=== PATIENT | male | born 1970 | race Caucasian/White ===

== ENCOUNTER 2021-10-31 10:43 | Emergency (ER) | payer SELFPAY ==
[2021-10-31 10:50] VITALS: BP 123/82; PULSE 96; RESP 19; TEMP 36.8; O2SAT 97; BMI 27.4
--- NOTE | 2021-10-31 11:20 | ED_ITS ---
HPI - Nausea/Vomiting/Diarrhea General: Chief complaint: General Medical Stated complaint: Flu-like symptoms Time Seen by Provider: 10/31/21 10:57 Source: patient Mode of arrival: ambulatory Limitations: no limitations History of Present Illness: Patient is a 51-year-old male who presents to ED today with a complaint of body aches and several episodes of vomiting and watery diarrhea (states 15ish of each) that began around 2am this morning. No documented fevers but states he has severe chills. No sick contacts. He is vaccinated for COVID. Did not receive influenza vaccination. He is not complaining of abdominal pain. No poor food exposures. No recent illness or antibiotic use. No blood in emesis or stool. MD elicited complaint: nausea, vomiting and diarrhea Onset (ago): hour(s) Description of diarrhea: watery Associated nausea: Yes Associated abdominal pain: No Associated symtoms: Reports nausea; Denies change in vision, chest pain, dizziness, dysuria, fatigue, headache(s) or malaise Review of Systems Const: Reports: chills and body aches; Denies: fatigue or malaise Eyes: Denies: change in vision ENMT: Denies: throat pain, odynophagia, nasal discharge or nasal congestion Card: Denies: chest pain Resp: Denies: dyspnea GI: Reports: nausea, vomiting and diarrhea; Denies: abdominal pain, hematemesis, hematochezia or melena : Denies: flank pain, dysuria or hematuria Musc: Reports: joint pain (reports body aches); Denies: neck pain, back pain or extremity pain Skin/Breast: Denies: rash Neuro: Denies: headache(s), numbness in extremities, weakness in extremities, sensory changes, difficulty walking or dizziness [facility] ED PFSH: Social History Smoking and tobacco status: current every day smoker Physical Exam Const: COMMON NORMALS: no acute distress, average body habitus, patient oriented x3, no limitations, healthy appearing, alert and well nourished GENERAL APPEARANCE: cooperative ORIENTATION/CONSCIOUSNESS: Yes awake, Yes oriented to person, Yes oriented to place and Yes oriented to time HENMT: COMMON NORMALS: normocephalic and atraumatic HEAD & SCALP: normocephalic and atraumatic Resp: COMMON NORMALS: normal respiratory effort and clear to auscultation bilaterally AUSCULTATION: clear to auscultation bilaterally Cardio: COMMON NORMALS: regular rate and regular rhythm RATE: regular rate RHYTHM: regular rhythm GI: COMMON NORMALS: Normal to inspection, nondistended, normoactive bowel sounds present, Soft to palpation, non-tender, No hepatosplenomegaly present and no masses PALPATION: Yes Soft to palpation and Yes No hepatosplenomegaly present Extremity: COMMON NORMALS: normal to inspection GENERAL: Yes normal exam except as noted Neuro: MIKE COMA SCALE: document GCS findings [place] coma scale eye opening: Spontaneous [place] coma scale verbal response: Orientated Mike coma scale motor response: Obey commands [place] coma scale total score: 15 COMMON NORMALS: patient oriented x3, moves all extremities, no focal motor deficits, no sensory deficits noted and gait normal SENSORIUM/ORIENTATION: Yes alert, Yes oriented to person, Yes oriented to place and Yes oriented to time Skin: COMMON NORMALS: no rashes or lesions noted GENERAL SKIN EXAM: no rashes or lesions noted Course Vital Signs: Vital signs: Vital Signs Temperature 98.3 F 10/31/21 10:50 Pulse Rate 96 10/31/21 10:50 Respiratory Rate 19 H 10/31/21 10:50 Blood Pressure 123/82 10/31/21 10:50 Pulse Oximetry 97 10/31/21 10:50 MDM - Nausea/Vomiting/Diarrhea Medical Decision Making Patient clinically appears well. His vital signs are stable. Labs are unremarkable. Coronavirus PCR pending. Patient was given a liter of fluids and antiemetics and states he does feel better. He has not had any episodes of vomiting or diarrhea while here. At this time recommend conservative treatment at home with fluids and bland diet and advance as tolerated. Lab Data : 10/31/21 11:59 10/31/21 11:59 Laboratory Results WBC 13.1 10^3/uL (4.0-10.0) H 10/31/21 11:59 RBC 5.09 10^6/uL (4.1-5.3) 10/31/21 11:59 Hgb 16.7 g/dL (11.7-16.6) H 10/31/21 11:59 Hct 50.0 % (42.0-52.0) 10/31/21 11:59 MCV 98.2 fl (80-94) H 10/31/21 11:59 MCH 32.8 pg (28.0-34.0) 10/31/21 11:59 MCHC 33.4 g/dL (30.0-36.0) 10/31/21 11:59 RDW 12.3 % (12.1-15.1) 10/31/21 11:59 Plt Count 216 10^3/cmm (130-400) 10/31/21 11:59 MPV 11.1 fL (7.4-10.4) H 10/31/21 11:59 Neut % (Auto) 90.8 % 10/31/21 11:59 Lymph % (Auto) 3.7 % 10/31/21 11:59 Evangeline % (Auto) 4.6 % 10/31/21 11:59 Eos % (Auto) 0.1 % 10/31/21 11:59 Baso % (Auto) 0.3 % 10/31/21 11:59 Neut # (Auto) 11.92 10^3/uL (1.8-7.7) H 10/31/21 11:59 Lymph # (Auto) 0.5 10^3/uL (0.8-4.8) L 10/31/21 11:59 Evangeline # (Auto) 0.6 10^3/uL (0.2-0.9) 10/31/21 11:59 Eos # (Auto) 0.0 10^3/uL (0.0-0.8) 10/31/21 11:59 Baso # (Auto) 0.0 10^3/uL (0.0-0.1) 10/31/21 11:59 Nucleated RBC % (auto) 0 % 10/31/21 11:59 Nucleated RBCs # 0.0 /100WBC 10/31/21 11:59 Sodium 135 mmol/L (136-145) L 10/31/21 11:59 Potassium 4.6 mmol/L (3.5-5.1) 10/31/21 11:59 Chloride 98 mmol/L (98-107) 10/31/21 11:59 Carbon Dioxide 27 mmol/L (22-29) 10/31/21 11:59 Anion Gap 14.6 (5-19) 10/31/21 11:59 BUN 15 mg/dL (6-20) 10/31/21 11:59 Creatinine 1.2 mg/dL (0.7-1.2) 10/31/21 11:59 GFR Calculation 63.6 mL/min (90-130) L 10/31/21 11:59 Glucose 109 mg/dL (65-115) 10/31/21 11:59 Calculated Osmolality 281 mOsm/kg (285-295) L 10/31/21 11:59 Calcium 9.9 mg/dL (8.5-10.5) 10/31/21 11:59 Total Bilirubin 0.5 mg/dL (0.15-1.2) 10/31/21 11:59 AST 26 U/L (0-40) 10/31/21 11:59 ALT 27 U/L (0-41) 10/31/21 11:59 Alkaline Phosphatase 94 IU/L (40-130) 10/31/21 11:59 Total Protein 7.6 g/dL (6.6-8.7) 10/31/21 11:59 Albumin 4.7 g/dL (3.5-5.2) 10/31/21 11:59 Globulin 2.9 g/dL (1.3-4.6) 10/31/21 11:59 Influenza Type A Ag Cancelled 10/31/21 11:59 Influenza Type B Ag Cancelled 10/31/21 11:59 SARS-CoV-2 Ag (Rapid) Cancelled 10/31/21 11:59 Discharge Plan Discharge Patient Disposition: Home Clinical Impression: Viral gastroenteritis Condition: Stable Prescriptions: New ondansetron HCl [Zofran] 4 mg tablet 4 mg PO Q6H PRN (Reason: nausea and vomiting) Qty: 14 0RF No Action Emergen-C 500 mg Tablet,Chewable 1 tab PO BID 0RF Discharge Orders: Discharge ED (Routine); Ordered 10/31/21 Ordered By: Julissa Verma Patient Instructions: Gastroenteritis (ED) Coding Level of Care Code ED Spline Rolling Machine Job Setter for Katt Fwd Exam Comprehensive
[2021-10-31] MEDS: ondansetron 2 mg/ML SDV 2 mL 4 MG IVP (12:11)
[2021-10-31] MEDS: lactated ringers 1,000 ML 999 ML IV (12:11)
[2021-10-31 12:15] LABS: Basophils % 0.3 %; Eosinophils % 0.1 %; Hemoglobin 16.7 g/dL (11.7-16.6); Lymphocytes # 0.5 10^3/uL (0.8-4.8); Lymphocytes % 3.7 %; Mean Corpuscular HGB Conc 33.4 g/dL (30.0-36.0); Mean Corpuscular Hemoglobin 32.8 pg (28.0-34.0); Mean Corpuscular Volume 98.2 fl (80-94); Mean Platelet Volume 11.1 fL (7.4-10.4); Monocytes # 0.6 10^3/uL (0.2-0.9); Monocytes % 4.6 %; Neutrophils # 11.92 10^3/uL (1.8-7.7); Neutrophils % 90.8 %; Nucleated Red Blood Cells % 0 %; Platelet Count 216 10^3/cmm (130-400); Red Blood Count 5.09 10^6/uL (4.1-5.3); Red Cell Distribution Width 12.3 % (12.1-15.1); White Blood Count 13.1 10^3/uL (4.0-10.0)
[2021-10-31 12:31] LABS: Alanine Aminotransferase 27 U/L (0-41); Albumin Level 4.7 g/dL (3.5-5.2); Alkaline Phosphatase 94 IU/L (40-130); Anion Gap 14.6 (5-19); Aspartate Amino Transferase 26 U/L (0-40); Blood Urea Nitrogen 15 mg/dL (6-20); Calcium 9.9 mg/dL (8.5-10.5); Carbon Dioxide 27 mmol/L (22-29); Chloride 98 mmol/L (98-107); Creatinine Clr Calc Pharmacy 70.4045; Globulin 2.9 g/dL (1.3-4.6); Glomerular Filtration Rate 63.6 mL/min (90-130); Glucose 109 mg/dL (65-115); Osmolality Calculated 281 mOsm/kg (285-295); Potassium 4.6 mmol/L (3.5-5.1); Sodium 135 mmol/L (136-145); Total Bilirubin 0.5 mg/dL (0.15-1.2); Total Protein 7.6 g/dL (6.6-8.7)
[2021-10-31 13:44] VITALS: BP 112/68; PULSE 81; RESP 13; O2SAT 95
[2021-10-31 14:52] LABS: Adenovirus Not Detected (NOT DETECT); Chlamydia Pneumoniae Not Detected (NOT DETECT); Coronavirus 229E,HKU1,NL63,OC4 Detected (NOT DETECT); Human Metapneumovirus Not Detected (NOT DETECT); Human Rhinovirus/Enterovirus Not Detected (NOT DETECT); Influenza A Not Detected (NOT DETECT); Influenza A H1 Not Detected (NOT DETECT); Influenza A H1-2009 Not Detected (NOT DETECT); Influenza A H3 Not Detected (NOT DETECT); Influenza B Not Detected (NOT DETECT); Mycoplasma Pneumoniae Not Detected (NOT DETECT); Parainfluenza Virus Type 1 Not Detected (NOT DETECT); Parainfluenza Virus Type 2 Not Detected (NOT DETECT); Parainfluenza Virus Type 3 Not Detected (NOT DETECT); Parainfluenza Virus Type 4 Not Detected (NOT DETECT); Respiratory Syncytial Virus A Not Detected (NOT DETECT); Respiratory Syncytial Virus B Not Detected (NOT DETECT); SARS-COV-2 Not Detected (NOT DETECT)
== END 2021-10-31 13:35 | disposition home or self-care (01) ==
PROVIDERS: Emergency Provider Physician Assistant
DX: A08.4 Viral intestinal infection, unspecified (principal); F17.200 Nicotine dependence, unspecified, uncomplicated
CPT/HCPCS: 80053; 85025; 87635; 96361; 96374; 99283; J2405

== ENCOUNTER 2022-05-11 08:09 | Emergency (ER) | payer SELFPAY ==
[2022-05-11 08:18] VITALS: BP 175/107; PULSE 71; RESP 18; TEMP 36.6; O2SAT 96; BMI 29.0
--- NOTE | 2022-05-11 08:44 | W.ED.DENTAL ---
HPI - Dental/Oral General: Chief complaint: Dental/Oral Stated complaint: Swelling and pain of face Time Seen by Provider: 05/11/22 08:24 Source: patient Mode of arrival: ambulatory Limitations: no limitations History of Present Illness: Patient is a nice 51-year-old male who presents to ED today with a complaint of right upper dental pain over the past couple of days. He has noticed right-sided facial swelling. Patient tells me he has a longstanding history of poor oral/dental care and has had multiple dental extractions for severe caries. He states he has a few teeth left that he knows he needs to get pulled. Patient is eating, drinking, swallowing, controlling secretions, breathing normally. No fevers. MD Complaint: tooth pain Teeth map: 1. Onset (ago): day(s) Duration: constant Severity: moderate Relieving factors: nothing Exacerbating factors: chewing Context: history of dental caries and poor dental care Associated symptoms: Reports no associated symptoms; Denies fever(s) or odynophagia Treatment prior to arrival: oral analgesic Review of Systems Const: Denies: fever(s), chills, body aches, fatigue or malaise ENMT: Reports: dental pain; Denies: throat pain, odynophagia, swelling of lips/tongue or oral sores Card: Denies: chest pain Resp: Denies: dyspnea Musc: Denies: neck pain Skin/Breast: Denies: rash Neuro: Denies: headache(s) PFS ED PFSH: Social History Smoking and tobacco status: current every day smoker Physical Exam Const: COMMON NORMALS: no acute distress, no limitations, alert and well nourished GENERAL APPEARANCE: cooperative ORIENTATION/CONSCIOUSNESS: Yes awake HENMT: COMMON NORMALS: normocephalic and atraumatic HEAD & SCALP: normal to inspection, normocephalic and atraumatic FACE & SINUS: other (mild swelling to R maxillary region ) MOUTH: Normal oral and palatal mucosa present, lip normal, tongue normal and other (floor of mouth is soft ) TEETH & GINGIVA: Yes poor dentition TEETH & GINGIVA IMAGES: 1. significant dental disease with several severely decayed teeth; no obvious drainable abscess this time Eye: GENERAL EYE: appearance normal, both eyes and all related structures Neck/C-Spine: COMMON NORMALS: full ROM, no lymphadenopathy and no meningeal signs GENERAL: No anterior neck swelling and No submandibular swelling Neuro: SENSORIUM/ORIENTATION: Yes alert MENINGEAL SIGNS: Yes no meningeal signs Course Vital Signs: Vital signs: Vital Signs Temperature 97.9 F 05/11/22 08:18 Pulse Rate 74 05/11/22 09:31 Respiratory Rate 18 05/11/22 08:18 Blood Pressure 139/108 05/11/22 09:31 Pulse Oximetry 95 05/11/22 09:31 Oxygen Delivery Me thod 05/11/22 09:31 MDM - Dental/Oral Medical Decision Making Will place on abx and recommend follow up with dentist as soon as possible. Discharge Plan Discharge Patient Disposition: Home Clinical Impression: Toothache, Dental caries, Dental abscess Condition: Stable Prescriptions: New clindamycin HCl 300 mg capsule 300 mg PO Q6H 7 Days Qty: 28 0RF No Action Emergen-C 500 mg Tablet,Chewable 1 tab PO BID Zofran 4 mg tablet 4 mg PO Q6H PRN (Reason: nausea and vomiting) Qty: 14 0RF Discharge Orders: Discharge ED (Routine); Ordered 05/11/22 Ordered By: Julissa Verma Patient Instructions: Dental Abscess (ED), Toothache (ED) Coding Level of Care Code ED Street Department Dispatcher for Katt Fwyobani Exam Expanded Problem Focused
[2022-05-11] MEDS: clindamycin 150 mg Capsule 300 MG PO (09:29)
[2022-05-11 09:31] VITALS: BP 139/108; PULSE 74; O2SAT 95
== END 2022-05-11 09:35 | disposition home or self-care (01) ==
PROVIDERS: Emergency Provider Physician Assistant
DX: K02.9 Dental caries, unspecified (principal); K04.7 Periapical abscess without sinus; F17.210 Nicotine dependence, cigarettes, uncomplicated
CPT/HCPCS: 99283

== ENCOUNTER 2023-03-31 11:12 | Emergency (ER) | payer MEDICAID, SELFPAY ==
[2023-03-31] VITALS (9 sets, daily range): BP systolic 162–211; BP diastolic 99–141; PULSE 56–69; RESP 16–18; TEMP 36.7; O2SAT 96–100
[2023-03-31 12:19] LABS: Basophils # 0.1 10^3/uL (0.0-0.1); Eosinophils # 0.3 10^3/uL (0.0-0.8); Hematocrit 44.5 % (42.0-52.0); Lymphocytes # 2.2 10^3/uL (0.8-4.8); Lymphocytes % 16.3 %; Mean Corpuscular HGB Conc 33.7 g/dL (30.0-36.0); Mean Corpuscular Hemoglobin 32.8 pg (28.0-34.0); Mean Corpuscular Volume 97.2 fl (80-94); Mean Platelet Volume 11.1 fL (7.4-10.4); Monocytes # 0.9 10^3/uL (0.2-0.9); Monocytes % 6.4 %; Neutrophils # 10.04 10^3/uL (1.8-7.7); Nucleated Red Blood Cells % 0 %; Platelet Count 238 10^3/cmm (130-400); Red Blood Count 4.58 10^6/uL (4.1-5.3); Red Cell Distribution Width 12.5 % (12.1-15.1); White Blood Count 13.6 10^3/uL (4.0-10.0)
[2023-03-31 12:36] LABS: Alanine Aminotransferase 21 U/L (0-41); Albumin Level 4.3 g/dL (3.5-5.2); Alkaline Phosphatase 95 U/L (40-130); Anion Gap 13.9 (5-19); Aspartate Amino Transferase 21 U/L (0-40); Blood Urea Nitrogen 12 mg/dL (6-20); Carbon Dioxide 23 mmol/L (22-29); Chloride 105 mmol/L (98-107); Globulin 2.7 g/dL (1.3-4.6); Glucose 98 mg/dL (65-115); Lipase 35 U/L (13-60); Osmolality Calculated 286 mOsm/kg (285-295); Potassium 3.9 mmol/L (3.5-5.1); Sodium 138 mmol/L (136-145); Total Bilirubin 0.4 mg/dL (0.15-1.2)
--- NOTE | 2023-03-31 12:57 | CT_ITS ---
WS: [id number] CT ABDOMEN AND PELVIS NONCONTRAST HISTORY: flank pain TECHNIQUE: Imaging performed through the abdomen and pelvis. Coronal and sagittal reformats are submi tted. All CT scans at [facility] use at least one of these dose optimization techniques: auto mated exposure control; mA and/or kV adjustment per patient size (includes targeted exams where dose is matched to clinical indication); or iterative reconstruction. DLP: 420.33 mGy.cm COMPARISON: None available. Lower thorax: Mild emphysematous changes and dependent changes at the lung bases. No mass or nodule o r pneumonia. Heart is normal size. Liver: Heterogeneous appearance of the liver. There are a few scattered areas of decreased attenuatio n which may be small cysts. These cannot be further evaluated on a noncontrast exam. No bile duct dil atation. Gallbladder: Normal gallbladder. No pericholecystic fluid or cholelithiasis. No gallbladder wall thic kening. Pancreas: Normal size and attenuation. Normal pancreatic duct. No pancreatitis or mass. Spleen: Normal. Adrenal glands: Normal. No mass. Right kidney: Lobulated, abnormal shape RIGHT kidney with numerous nonobstructing calcifications in t he pelvis. There are focal areas of cortical thinning, stranding and scarring. Moderate to severe RIG HT hydroureteronephrosis. There are numerous calcifications in the distal ureter and ureteral wall th ickening. One of the distal ureteral calcifications measuring 4 mm may be extruded into the urinary b ladder. There is an additional calcification in the dependent urinary bladder and gravel like stones. Several calcifications are in the distal RIGHT ureter. Left kidney: Nonobstructing calcifications. Low-attenuation mass measuring 17 mm in the mid kidney. [place] units are slightly elevated. Cannot be further described by CT. Aorta: Normal abdominal aorta, no aneurysm or atherosclerosis. No free fluid, intraperitoneal air or significant lymphadenopathy. GI tract: Normal stomach. No small bowel obstruction. There are numerous diverticula throughout the e ntire colon. No evidence for acute diverticulitis. The appendix is not identified. Surgical changes n ear the cecum may be from a prior appendectomy. Abdominal wall: Negative. No hernia. Pelvis: No free fluid or adenopathy. Prostate gland calcifications. Urinary bladder is well distended . Small stones are present in the bladder and gravel like calcifications. LEFT inguinal canal is carrasquillo nt containing fat only. Osseous structures: Unremarkable. CT/CT kidney stone [id number] IMPRESSION: 1. Moderate to severe RIGHT hydroureteronephrosis. Numerous distal ureteral an d urinary bladder calcifications. 2. Diffuse ureter wall thickening and periureteral stranding. 3. Abnormal RIGHT kidney. Cortical thinning, scarring and lobulated cortex. Pr obably from prior episodes of infection or infarction. Additional nonobstructin g bilateral renal calcifications. 4. Numerous colonic diverticula without evidence for acute diverticulitis.
--- NOTE | 2023-03-31 13:49 | ED_ITS ---
HPI - Abdominal Pain General: Chief Complaint: Abdominal Pain Stated Complaint: Abd pain, pain into groin, Time Seen by Provider: 03/31/23 12:30 Source: patient Mode of arrival: ambulatory History of Present Illness: 52-year-old male presents emergency room with complaint of right flank pain. He has a known history of atrophic right kidney and he has had multiple stones in the past last couple years he is not any problems with stones last 12 to 18 hours she has had increasing right flank pain radiating to his testicle. He denies any dysuria urgency or frequency no fever sweats chills no hematuria. MD elicited complaint: abdominal pain Pertinent past history: none Onset (ago): hour(s) Pain Consistency: constant Location: R flank Severity: severe Quality: sharp Radiation: other (Right testicle) Exacerbating factors: nothing Relieving factors: nothing Associated Symptoms: Reports nausea and vomiting; Denies anorexia, belching, bloating, change in bowel habits, change in stool character, chills, coffee ground emesis, constipation, GI cramping, diarrhea, dyspepsia, dysuria, excessive flatus, fever(s), heartburn, hematochezia, hematuria, hematemesis, fecal incontinence, loose stools, melena, poor appetite and syncope Review of Systems Const: Denies: fever(s) or chills ENMT: Denies: throat pain, ear or mastoid pain, nasal discharge or nasal congestion Card: Denies: chest pain, palpitations, irregular heart rhythm or syncope Resp: Denies: dyspnea, productive cough or non-productive cough GI: Reports: abdominal pain, nausea and vomiting; Denies: hematemesis, coffee ground emesis, heartburn, diarrhea, constipation, bloating, GI cramping, belching, excessive flatus, fecal incontinence, change in bowel habits, change in stool character, hematochezia or melena : Denies: dysuria or hematuria Skin/Breast: Denies: rash or pruritus PFSH ED PFSH: Social History Smoking and tobacco status: current every day smoker Physical Exam Const: GENERAL APPEARANCE: cooperative ORIENTATION/CONSCIOUSNESS: Yes awake, Yes oriented to person, Yes oriented to place and Yes oriented to time HENMT: COMMON NORMALS: normocephalic, atraumatic and hearing grossly normal bilaterally HEAD & SCALP: normocephalic and atraumatic Resp: COMMON NORMALS: normal respiratory effort, No retractions, No use of accessory muscles and clear to auscultation bilaterally AUSCULTATION: clear to auscultation bilaterally Cardio: COMMON NORMALS: regular rate, regular rhythm and No murmurs present (Cardio) RATE: regular rate RHYTHM: regular rhythm GI: COMMON NORMALS: Soft to palpation and No hepatosplenomegaly present AUSCULTATION: Yes normoactive bowel sounds PALPATION: Yes Soft to palpation, No Tenderness to palpation present (GI), No Guarding due to palpation present (GI) and Yes No hepatosplenomegaly present : BLADDER/KIDNEY EXAM: Yes CVA tenderness Back/Pelvis: GENERAL BACK: Yes CVA tenderness CVA tenderness: right Extremity: COMMON NORMALS: normal to inspection, capillary refill normal, no clubbing, cyanosis or edema, no calf tenderness and no pedal edema Neuro: SENSORIUM/ORIENTATION: Yes oriented to person, Yes oriented to place and Yes oriented to time Skin: COMMON NORMALS: no rashes or lesions noted GENERAL SKIN EXAM: no rashes or lesions noted Course Vital Signs: Vital signs: Vital Signs Temperature 98.0 F 03/31/23 11:15 Pulse Rate 61 03/31/23 17:01 Respiratory Rate 18 03/31/23 17:01 Blood Pressure 162/99 03/31/23 17:01 Pulse Oximetry 97 03/31/23 17:01 Oxygen Delivery Me thod Room Air 03/31/23 17:01 MDM - Abdominal Pain Medical Decision Making Patient developed severe worsening right flank pain given narcotics did improve with diet along with fluids. CT shows obstructive pyelonephritis. He also has leukocytosis urine shows signs of infection consistent with the findings in the CT. We do not have urology available here while at transfer to appropriate level of care with urology services. Medical Records I reviewed the patient's medical records. Lab Data I reviewed the patient's lab results. 03/31/23 12:10 03/31/23 12:10 Labs/Radiology: Radiology Impressions Abdomen/Pelvis CT 03/31/23 12:57 IMPRESSION: 1. Moderate to severe RIGHT hydroureteronephrosis. Numerous distal ureteral and urinary bladder calcifications. 2. Diffuse ureter wall thickening and periureteral stranding. 3. Abnormal RIGHT kidney. Cortical thinning, scarring and lobulated cortex. Probably from prior episodes of infection or infarction. Additional nonobstructing bilateral renal calcifications. 4. Numerous colonic diverticula without evidence for acute diverticulitis. Scrotum Ultrasound 03/31/23 14:30 IMPRESSION: 1. No testicular mass or torsion. 2. Color Doppler demonstrate in both testicles. 3. Mildly heterogeneous and enlarged RIGHT epididymis. No increased vascularity at this time to suggest acute epididymitis. Laboratory Results WBC 13.6 10^3/uL (4.0-10.0) H 03/31/23 12:10 RBC 4.58 10^6/uL (4.1-5.3) 03/31/23 12:10 Hgb 15.0 g/dL (11.7-16.6) 03/31/23 12:10 Hct 44.5 % (42.0-52.0) 03/31/23 12:10 MCV 97.2 fl (80-94) H 03/31/23 12:10 MCH 32.8 pg (28.0-34.0) 03/31/23 12:10 MCHC 33.7 g/dL (30.0-36.0) 03/31/23 12:10 RDW 12.5 % (12.1-15.1) 03/31/23 12:10 Plt Count 238 10^3/cmm (130-400) 03/31/23 12:10 MPV 11.1 fL (7.4-10.4) H 03/31/23 12:10 Neut % (Auto) 74.0 % 03/31/23 12:10 Lymph % (Auto) 16.3 % 03/31/23 12:10 [place] % (Auto) 6.4 % 03/31/23 12:10 Eos % (Auto) 2.0 % 03/31/23 12:10 Baso % (Auto) 1.0 % 03/31/23 12:10 Neut # (Auto) 10.04 10^3/uL (1.8-7.7) H 03/31/23 12:10 Lymph # (Auto) 2.2 10^3/uL (0.8-4.8) 03/31/23 12:10 [place] # (Auto) 0.9 10^3/uL (0.2-0.9) 03/31/23 12:10 Eos # (Auto) 0.3 10^3/uL (0.0-0.8) 03/31/23 12:10 Baso # (Auto) 0.1 10^3/uL (0.0-0.1) 03/31/23 12:10 Nucleated RBC % (auto) 0 % 03/31/23 12:10 Nucleated RBCs # 0.0 /100WBC 03/31/23 12:10 Sodium 138 mmol/L (136-145) 03/31/23 12:10 Potassium 3.9 mmol/L (3.5-5.1) 03/31/23 12:10 Chloride 105 mmol/L (98-107) 03/31/23 12:10 Carbon Dioxide 23 mmol/L (22-29) 03/31/23 12:10 Anion Gap 13.9 (5-19) 03/31/23 12:10 BUN 12 mg/dL (6-20) 03/31/23 12:10 Creatinine 1.1 mg/dL (0.7-1.2) 03/31/23 12:10 GFR Calculation 70.0 mL/min (90-130) L 03/31/23 12:10 Glucose 98 mg/dL (65-115) 03/31/23 12:10 Calculated Osmolality 286 mOsm/kg (285-295) 03/31/23 12:10 Calcium 9.0 mg/dL (8.5-10.5) 03/31/23 12:10 Total Bilirubin 0.4 mg/dL (0.15-1.2) 03/31/23 12:10 AST 21 U/L (0-40) 03/31/23 12:10 ALT 21 U/L (0-41) 03/31/23 12:10 Alkaline Phosphatase 95 U/L (40-130) 03/31/23 12:10 Total Protein 7.0 g/dL (6.6-8.7) 03/31/23 12:10 Albumin 4.3 g/dL (3.5-5.2) 03/31/23 12:10 Globulin 2.7 g/dL (1.3-4.6) 03/31/23 12:10 Lipase 35 U/L (13-60) 03/31/23 12:10 Urine Color Yellow (Yellow) 03/31/23 13:30 Urine Appearance Hazy (CLEAR) A 03/31/23 13:30 Urine pH 5 (5-7) 03/31/23 13:30 Ur Specific [place] 1.025 (1.005-1.030) 03/31/23 13:30 Urine Protein 1+ (Negative) H 03/31/23 13:30 Urine Glucose (UA) Norm (Normal) 03/31/23 13:30 Urine Ketones Negative (Negative) 03/31/23 13:30 Urine Blood 3+ (Negative) H 03/31/23 13:30 Urine Nitrate Negative (Negative) 03/31/23 13:30 Urine Bilirubin Neg (Negative) 03/31/23 13:30 Urine Urobilinogen Norm mg/dL (Negative) 03/31/23 13:30 Ur Leukocyte Esterase 2+ (Negative) H 03/31/23 13:30 Urine RBC 10-15 /hpf (0-2) H 03/31/23 13:30 Urine WBC 40-55 /hpf (0-5) H 03/31/23 13:30 Ur Squamous Epith Cells 0-4 /hpf (0-5) H 03/31/23 13:30 Amorphous Sediment Not Reportable 03/31/23 13:30 Urine Bacteria 1+ /hpf (NONE) H 03/31/23 13:30 Urine Mucus 1+ /hpf 03/31/23 13:30 Discharge Plan Discharge Patient Disposition: Xfer Short-Term Hosp Condition: Stable Coding Level of Care Code ED Freelance Art Director for Katt Epstein
[2023-03-31] MEDS: morphine 4 mg/mL SDV 1 mL IVP ×4 (14:04→18:52)
[2023-03-31] MEDS: ondansetron 2 mg/ML SDV 2 mL 4 MG IVP ×2 (14:04→18:52)
[2023-03-31 14:20] LABS: Add Urine Microscopic? YES; Bacteria Urine 1+ /hpf; Bilirubin Urine Neg (Negative); Blood Urine 3+ (Negative); Glucose Urine UA Norm (Normal); Ketones Urine Negative (Negative); Leukocyte Esterase Urine 2+ (Negative); Nitrate Urine Negative (Negative); Protein Urine 1+ (Negative); Specific Gravity, Urine 1.025 (1.005-1.030); Squamous Epithelial Cell Urine 0-4 /hpf (0-5); Urine Appearance Hazy (CLEAR); Urine Color Yellow (Yellow); Urobilinogen Urine Norm (Negative); WBC Urine 40-55 /hpf (0-5); pH Urine 5 (5-7)
[2023-03-31 14:21] LABS: Add Urine Culture? Yes; Mucus Urine 1+ /hpf
--- NOTE | 2023-03-31 14:30 | US_ITS ---
WS: [id number] TESTICULAR ULTRASOUND HISTORY: r testicle pain COMPARISON: None available. TECHNIQUE: Real-time and color Doppler imaging or utilized to perform a testicular ultrasound. Right testicle: 4.5 cm x 3.2 cm x 2.2 cm. Normal size and echogenicity. No mass or torsion. Normal color Doppler is present throughout. Systolic and diastolic velocities are both present. Small hydrocele. Right epididymis: Mildly prominent and heterogeneous epididymis with no increased vascularity. Left testicle: 3.5 cm x 2.9 cm x 1.9 cm. Normal sized testicle. Mild coarse echogenicity throughout but no definite mass and no increased vasc ularity. Normal color Doppler is present throughout. Systolic and diastolic velocities are both present. No significant hydrocele. Left epididymis: Normal epididymis with no increased vascularity. US/US scrotum [id number] IMPRESSION: 1. No testicular mass or torsion. 2. Color Doppler demonstrate in both testicles. 3. Mildly heterogeneous and enlarged RIGHT epididymis. No increased vascularit y at this time to suggest acute epididymitis.
[2023-03-31] MEDS: promethazine 25 mg/mL SDV 1 mL IM (14:34)
[2023-03-31] MEDS: cefTRIAXone 1,000 MG in sodium chloride 0.9% (plus) 50 ML 100 MG IV (14:35)
[2023-03-31] MEDS: hyDRALAzine 20 mg/mL INJ 1 mL IVP (15:31)
== END 2023-03-31 18:55 | disposition short-term general hospital (02) ==
PROVIDERS: Physician Assistant; Emergency Provider Family Medicine
DX: N12 Tubulo-interstitial nephritis, not specified as acute or chronic (principal); N50.811 Right testicular pain; F17.200 Nicotine dependence, unspecified, uncomplicated
CPT/HCPCS: 36415; 74176; 76870; 80053; 81001; 83690; 85025; 87040; 87086; 96365; 96372; 96375; 96376; 99285; J0360; J0696; J2270; J2405; J2550

== ENCOUNTER 2023-04-04 21:50 | Emergency (ER) | payer MEDICAID, SELFPAY ==
[2023-04-04 22:06] VITALS: BP 146/95; PULSE 77; RESP 16; TEMP 36.7; O2SAT 96; BMI 27.4
--- NOTE | 2023-04-04 23:01 | W.ED.MALEGU ---
HPI - Male Genitourinary General: Chief complaint: Urogenital-Male Stated complaint: back pain Time Seen by Provider: 04/04/23 22:22 Source: patient Mode of arrival: ambulatory Limitations: no limitations History of Present Illness: Patient presents to the emergency department today for evaluation treatment of sudden onset hematuria. Patient was previously seen and evaluated here in the emergency department for right-sided flank pain. He had a previous history of kidney stones and, his evaluation indicated active ureteral calculi. Patient was admitted on 03/31 to [facility] under urology care and underwent renal stenting. Patient still has renal stent on the right side. He was discharged on 04/02. Patient states he thought he was improving until today. He states at 4 PM he developed gross hematuria and worsening of right lower abdominal and groin pain. He is supposed to be following up with Dr. Mcdonnell with [facility] urology in 1 to 2 weeks. Review of Systems General: Reports: 10 or more systems reviewed and unremarkable except in HPI and below PFSH ED PFSH: Social History Smoking and tobacco status: current every day smoker Physical Exam Const: COMMON NORMALS: no acute distress, average body habitus, patient oriented x3 and alert HENMT: COMMON NORMALS: normocephalic, atraumatic, hearing grossly normal bilaterally and moist oral mucous membranes HEAD & SCALP: normocephalic and atraumatic Eye: COMMON NORMALS: Equal, round and reactive pupils present, EOMs intact bilaterally and conjunctivae normal CONJUNCTIVA: Yes conjunctivae normal PUPIL: Yes Equal, round and reactive pupils present Neck/C-Spine: COMMON NORMALS: no JVD Lymph: LYMPHATIC: no lymphadenopathy noted Resp: COMMON NORMALS: normal respiratory effort, No retractions and No use of accessory muscles Cardio: COMMON NORMALS: no JVD and regular rate RATE: regular rate GI: OTHER: Right lower abdominal pain-worse with sitting forward radiating to right groin. Extremity: COMMON NORMALS: normal to inspection, full ROM and capillary refill normal Neuro: COMMON NORMALS: patient oriented x3 SENSORIUM/ORIENTATION: Yes alert Psych: COMMON NORMALS: mental status grossly normal, cooperative, normal affect, speech normal and activity/motor behavior normal SPEECH: Yes normal speech Course Vital Signs: Vital signs: Vital Signs Temperature 98.0 F 04/04/23 22:06 Pulse Rate 77 04/04/23 22:06 Respiratory Rate 16 04/04/23 22:06 Blood Pressure 146/95 04/04/23 22:06 Pulse Oximetry 96 04/04/23 22:06 Oxygen Delivery Me thod Room Air 04/04/23 22:06 MDM - Male Medical Decision Making Patient presents to the ER for sudden onset gross hematuria and acute worsening of right-sided abdominal pain after right renal stent. Patient's urinalysis reveals no significant concerns for infection but gross blood is noted. After discussing with Dr. Burk, did recommend reaching out to [facility] urology to discuss if they would require or want imaging on this patient or, to recommend follow-up/interventions for him. I reached out to [employer] single line to request page for urology however, after approximately an hour and a half, we did reach back out to single line but still heard nothing back from urology after approximately 2 and half hours. At that time, I did talk with Dr. Burk who indicated patient appeared stable and could discharge home with instruction to call and follow-up with urology in the morning. Patient was treated for pain here in the emergency department with a short course pain medication provided to him. He was encouraged to push lots of fluids and needed to be seen and evaluated immediately if he develops any inability to urinate. Patient verbalized understanding and agreement to treatment plan. Differential Diagnosis Likely urinary tract infection, urethritis and acute retention of urine Lab Data Laboratory Results Urine Color Red (Yellow) 04/04/23 22:39 Urine Appearance Cloudy (CLEAR) A 04/04/23 22:39 Urine pH 5 (5-7) 04/04/23 22:39 Ur Specific [place] 1.025 (1.005-1.030) 04/04/23 22:39 Urine Protein 3+ (Negative) H 04/04/23 22:39 Urine Glucose (UA) Norm (Normal) 04/04/23 22:39 Urine Ketones Negative (Negative) 04/04/23 22:39 Urine Blood 3+ (Negative) H 04/04/23 22:39 Urine Nitrate Negative (Negative) 04/04/23 22:39 Urine Bilirubin Neg (Negative) 04/04/23 22:39 Urine Urobilinogen Norm mg/dL (Negative) 07/24/23 22:39 Ur Leukocyte Esterase 2+ (Negative) H 04/04/23 22:39 Urine RBC Too numerous to cnt /hpf (0-2) H 04/04/23 22:39 Urine WBC 15-25 /hpf (0-5) H 04/04/23 22:39 Ur Squamous Epith Cells 0-4 /hpf (0-5) H 04/04/23 22:39 Amorphous Sediment Not Reportable 04/04/23 22:39 Urine Bacteria Trace /hpf (NONE) 04/04/23 22:39 Discharge Plan Discharge Patient Disposition: Home Clinical Impression: Hematuria, Ureteral stent present Condition: Stable Prescriptions: No Action ibuprofen 200 mg Tablet 800 mg PO Q6H PRN (Reason: Pain) Discharge Orders: Discharge ED (Routine); Ordered 04/05/23 Ordered By: Chanel Garcia Discharge Diet: Usual diet Discharge Activity: Increase activity as tolerated Patient Instructions: Hematuria - Male, Ureteral Stent Placement (DC) Activity Restrictions/Additional Instructions: We found no signs of infection on your evaluation here in the emergency department. Pain is most likely due to some movement of your stent which could also cause increase in bleeding. However, we did attempt to reach out to [facility] urology but have not heard back in a timely fashion. After speaking to the emergency room physician on your care team we believe they would most likely recommend a follow-up appointment through their office so we recommend calling them first thing in the morning to discuss being seen and reevaluated. Until then, we are going to provide you some medication to help you with pain and discomfort. Continue to stay well-hydrated and drink lots of fluids. Seek immediate reevaluation if you develop inability to urinate. Coding Level of Care Code ED Operations And Maintenance Manager for Katt Epstein
[2023-04-04 23:11] LABS: Add Urine Microscopic? YES; Bilirubin Urine Neg (Negative); Blood Urine 3+ (Negative); Glucose Urine UA Norm (Normal); Ketones Urine Negative (Negative); Leukocyte Esterase Urine 2+ (Negative); Nitrate Urine Negative (Negative); Protein Urine 3+ (Negative); Specific Gravity, Urine 1.025 (1.005-1.030); Urine Appearance Cloudy (CLEAR); Urine Color Red (Yellow); Urobilinogen Urine Norm (Negative); pH Urine 5 (5-7)
[2023-04-04 23:12] LABS: Add Urine Culture? Yes; Bacteria Urine TRACE /hpf; RBC Urine TOO NUMEROUS TO CNT /hpf (0-2); Squamous Epithelial Cell Urine 0-4 /hpf (0-5); WBC Urine 15-25 /hpf (0-5)
[2023-04-05] MEDS: HYDROcodone-acetaminophen 5-325 mg Tablet 1 TAB PO (02:42)
[2023-04-05 02:43] VITALS: BP 140/70; PULSE 85; RESP 18; O2SAT 98
--- NOTE | 2023-04-06 08:52 | DCPLANNER ---
it audit manager called patient due to no primary care physician - no answer at this time.
== END 2023-04-05 02:43 | disposition home or self-care (01) ==
PROVIDERS: Emergency Provider Physician Assistant
DX: R31.9 Hematuria, unspecified (principal); Z96.0 Presence of urogenital implants; F17.210 Nicotine dependence, cigarettes, uncomplicated
CPT/HCPCS: 81001; 87086; 99283

== ENCOUNTER → 2023-05-02 18:09 | Outpatient (BNVA) | payer MEDICAID, SELFPAY | PROVIDERS: Visit Provider Emergency Medicine | DX: J02.9 Acute pharyngitis, unspecified (principal); Z20.818 Contact with and (suspected) exposure to other bacterial communicable diseases; Z00.00 Encounter for general adult medical examination without abnormal findings | CPT/HCPCS: 87071; 87880 ==

== ENCOUNTER 2023-05-04 17:18 | Emergency (ER) | payer MEDICAID, SELFPAY ==
[2023-05-04 17:37] VITALS: BP 117/87; PULSE 78; RESP 16; TEMP 36.8; O2SAT 96
--- NOTE | 2023-05-04 18:14 | W.ED.MALEGU ---
HPI - Male Genitourinary General: Chief complaint: Urogenital-Male Stated complaint: stint in kidney, bleeding for 3 wks Time Seen by Provider: 05/04/23 19:32 History of Present Illness: Patient has stent placed in his right kidney 3 weeks ago at [facility]. And has been having pain and urinating blood since then. He did not follow-up with the surgeon to have the stent removed however he said he will call them tomorrow he is afraid he has a urinary tract infection. Review of Systems General: Reports: 10 or more systems reviewed and unremarkable except in HPI and below PFSH ED PFSH: Social History Smoking and tobacco status: current every day smoker Physical Exam Const: COMMON NORMALS: no acute distress, average body habitus, patient oriented x3, no limitations, healthy appearing, alert and well nourished HENMT: COMMON NORMALS: normocephalic, atraumatic, hearing grossly normal bilaterally, external ears normal, Normal external nose present and moist oral mucous membranes HEAD & SCALP: normocephalic and atraumatic NOSE: Normal external nose present EXTERNAL EAR: Yes external ears normal Eye: COMMON NORMALS: Equal, round and reactive pupils present, EOMs intact bilaterally, conjunctivae normal and no scleral icterus CONJUNCTIVA: Yes conjunctivae normal PUPIL: Yes Equal, round and reactive pupils present Neck/C-Spine: COMMON NORMALS: no JVD Lymph: LYMPHATIC: no lymphadenopathy noted Chest: COMMONS NORMALS: normal inspection of the chest and normal palpation of entire chest wall Resp: COMMON NORMALS: normal respiratory effort, No retractions, No use of accessory muscles and clear to auscultation bilaterally AUSCULTATION: clear to auscultation bilaterally Cardio: COMMON NORMALS: no JVD, regular rate, regular rhythm, S1 normal heart sound present, S2 normal heart sound present, No gallops present (Cardio), No clicks present (Cardio), No murmurs present (Cardio) and No rub (Cardio) RATE: regular rate RHYTHM: regular rhythm HEART SOUNDS: S1 normal heart sound present and S2 normal heart sound present GI: COMMON NORMALS: Normal to inspection, nondistended, normoactive bowel sounds present, Soft to palpation, non-tender, No hepatosplenomegaly present and no masses PALPATION: Yes Soft to palpation and Yes No hepatosplenomegaly present Neuro: COMMON NORMALS: patient oriented x3 SENSORIUM/ORIENTATION: Yes alert Course Vital Signs: Vital signs: Vital Signs Temperature 98.3 F 05/04/23 17:37 Pulse Rate 78 05/04/23 17:37 Respiratory Rate 16 05/04/23 17:37 Blood Pressure 117/87 05/04/23 17:37 Pulse Oximetry 96 05/04/23 17:37 Oxygen Delivery Me thod Room Air 05/04/23 17:37 MDM - Male Medical Decision Making Patient presents to the ER with complaints of hematuria and stent placement on his right ureter still in place. Patient's afraid he has urinary tract infection. Physical exam was performed lab work was obtained which will include UA. Lab work was reviewed and urinalysis, positive for UTI. Patient be discharged on Cipro and instructed to call his urologist tomorrow for further appointment Differential Diagnosis Unlikely urinary tract infection, priapism, urethritis, epididymitis, genital herpes simplex, prostatitis, acute retention of urine or inguinal hernia Medical Records I reviewed the patient's medical records. Lab Data I reviewed the patient's lab results. 05/04/23 21:10 05/04/23 21:10 Laboratory Results WBC 9.68 10^3/uL (3.29-11.43) 05/04/23 21:10 RBC 4.56 10^6/uL (3.85-5.65) 05/04/23 21:10 Hgb 15.10 g/dL (11.27-16.99) 05/04/23 21:10 Hct 44.7 % (37-53) 05/04/23 21:10 MCV 98.0 fl (82-101) 05/04/23 21:10 MCH 33.1 pg (27-33) H 05/04/23 21:10 MCHC 33.8 g/dL (30-55) 05/04/23 21:10 RDW 12.3 % (12.1-15.1) 05/04/23 21:10 Plt Count 223 10^3/cmm (157-399) 05/04/23 21:10 MPV 10.8 fL (7.4-10.4) H 05/04/23 21:10 Neut % (Auto) 67.9 % 05/04/23 21:10 Lymph % (Auto) 21.4 % 05/04/23 21:10 Tucker % (Auto) 5.9 % 05/04/23 21:10 Eos % (Auto) 3.5 % 05/04/23 21:10 Baso % (Auto) 1.0 % 05/04/23 21:10 Neut # (Auto) 6.57 10^3/uL (1.8-7.7) 05/04/23 21:10 Lymph # (Auto) 2.1 10^3/uL (0.8-4.8) 05/04/23 21:10 Tucker # (Auto) 0.6 10^3/uL (0.2-0.9) 05/04/23 21:10 Eos # (Auto) 0.3 10^3/uL (0.0-0.8) 05/04/23 21:10 Baso # (Auto) 0.1 10^3/uL (0.0-0.1) 05/04/23 21:10 Nucleated RBC % (auto) 0 % 05/04/23 21:10 Nucleated RBCs # 0.0 /100WBC 05/04/23 21:10 Sodium 140 mmol/L (136-145) 05/04/23 21:10 Potassium 3.9 mmol/L (3.5-5.1) 05/04/23 21:10 Chloride 105 mmol/L (98-107) 05/04/23 21:10 Carbon Dioxide 25 mmol/L (22-29) 05/04/23 21:10 Anion Gap 13.9 (5-19) 05/04/23 21:10 BUN 25 mg/dL (6-20) H 05/04/23 21:10 Creatinine 1.1 mg/dL (0.7-1.2) 05/04/23 21:10 GFR Calculation 70.0 mL/min (90-130) L 05/04/23 21:10 Glucose 103 mg/dL (65-115) 05/04/23 21:10 Calculated Osmolality 295 mOsm/kg (285-295) 05/04/23 21:10 Calcium 9.6 mg/dL (8.5-10.5) 05/04/23 21:10 Urine Color Jeannine (Yellow) 05/04/23 19:37 Urine Appearance Cloudy (CLEAR) A 05/04/23 19:37 Urine pH 5 (5-7) 05/04/23 19:37 Ur Specific [place] 1.025 (1.005-1.030) 05/04/23 19:37 Urine Protein 3+ (Negative) H 05/04/23 19:37 Urine Glucose (UA) Norm (Normal) 05/04/23 19:37 Urine Ketones Negative (Negative) 05/04/23 19:37 Urine Blood 3+ (Negative) H 05/04/23 19:37 Urine Nitrate Positive (Negative) H 05/04/23 19:37 Urine Bilirubin Neg (Negative) 05/04/23 19:37 Urine Urobilinogen Neg mg/dL (Negative) 05/04/23 19:37 Ur Leukocyte Esterase 2+ (Negative) H 05/04/23 19:37 Urine RBC 80-100 /hpf (0-2) H 05/04/23 19:37 Urine WBC 15-25 /hpf (0-5) H 05/04/23 19:37 Ur Squamous Epith Cells None /hpf (0-5) 05/04/23 19:37 Amorphous Sediment Not Reportable 05/04/23 19:37 Urine Bacteria 2+ /hpf (NONE) H 05/04/23 19:37 Discharge Plan Discharge Patient Disposition: Home Clinical Impression: Urinary tract infection Qualifiers: Urinary tract infection type: acute cystitis Hematuria presence: with hematuria Qualified Code(s): N30.01 - Acute cystitis with hematuria Condition: Stable Prescriptions: New Cipro 500 mg tablet 500 mg PO Q12H Qty: 20 0RF No Action tamsulosin 0.4 mg capsule 0.4 mg PO DAILY ibuprofen 200 mg Tablet 800 mg PO Q6H PRN (Reason: Pain) Discharge Orders: Discharge ED (Routine); Ordered 05/04/23 Ordered By: Gilberto Boyd Patient Instructions: Urinary Tract Infection - Men Activity Restrictions/Additional Instructions: Please finish all your antibiotics as directed. Please call your urologist in the morning to arrange follow-up for further evaluation and treatment. Coding Level of Care Code ED Nursing Informatics Specialist for Katt Epstein
[2023-05-04 20:12] LABS: Add Urine Microscopic? YES; Bilirubin Urine Neg (Negative); Blood Urine 3+ (Negative); Glucose Urine UA Norm (Normal); Ketones Urine Negative (Negative); Leukocyte Esterase Urine 2+ (Negative); Nitrate Urine Positive (Negative); Protein Urine 3+ (Negative); Specific Gravity, Urine 1.025 (1.005-1.030); Urine Appearance Cloudy (CLEAR); Urine Color Amber (Yellow); Urobilinogen Urine Neg (Negative); pH Urine 5 (5-7)
[2023-05-04 20:13] LABS: Add Urine Culture? Yes; Bacteria Urine 2+ /hpf; RBC Urine 80-100 /hpf (0-2); WBC Urine 15-25 /hpf (0-5)
[2023-05-04 21:28] LABS: Basophils # 0.1 10^3/uL (0.0-0.1); Eosinophils # 0.3 10^3/uL (0.0-0.8); Eosinophils % 3.5 %; Hematocrit 44.7 % (37-53); Lymphocytes # 2.1 10^3/uL (0.8-4.8); Lymphocytes % 21.4 %; Mean Corpuscular HGB Conc 33.8 g/dL (30-55); Mean Corpuscular Hemoglobin 33.1 pg (27-33); Mean Platelet Volume 10.8 fL (7.4-10.4); Monocytes # 0.6 10^3/uL (0.2-0.9); Monocytes % 5.9 %; Neutrophils # 6.57 10^3/uL (1.8-7.7); Neutrophils % 67.9 %; Nucleated Red Blood Cells % 0 %; Platelet Count 223 10^3/cmm (157-399); Red Blood Count 4.56 10^6/uL (3.85-5.65); Red Cell Distribution Width 12.3 % (12.1-15.1); White Blood Count 9.68 10^3/uL (3.29-11.43)
[2023-05-04 21:35] LABS: Anion Gap 13.9 (5-19); Blood Urea Nitrogen 25 mg/dL (6-20); Calcium 9.6 mg/dL (8.5-10.5); Carbon Dioxide 25 mmol/L (22-29); Chloride 105 mmol/L (98-107); Glucose 103 mg/dL (65-115); Osmolality Calculated 295 mOsm/kg (285-295); Potassium 3.9 mmol/L (3.5-5.1); Sodium 140 mmol/L (136-145)
[2023-05-04] MEDS: ciprofloxacin 500 mg Tablet PO (21:53)
== END 2023-05-04 21:54 | disposition home or self-care (01) ==
PROVIDERS: Nurse Practitioner Family; Emergency Provider Emergency Medicine
DX: N30.01 Acute cystitis with hematuria (principal); F17.210 Nicotine dependence, cigarettes, uncomplicated
CPT/HCPCS: 36415; 80048; 81001; 85025; 87086; 99283

== ENCOUNTER → 2023-05-15 13:30 | Outpatient (BNVA) | payer MEDICAID, SELFPAY | PROVIDERS: Visit Provider Registered Nurse Neonatal Intensive Care | DX: R05.9 Cough, unspecified (principal); J06.9 Acute upper respiratory infection, unspecified | CPT/HCPCS: 87426 ==

== ENCOUNTER → 2023-11-01 08:37 | Outpatient (BNVA) | payer MEDICAID, SELFPAY | PROVIDERS: Visit Provider Family Medicine Adult Medicine | DX: N20.0 Calculus of kidney (principal); I10 Essential (primary) hypertension; N18.2 Chronic kidney disease, stage 2 (mild) | CPT/HCPCS: 80053; 80061; 84443; 85025; G0103 ==

== ENCOUNTER 2023-11-12 10:26 | Emergency (ER) | payer MEDICAID, SELFPAY ==
[2023-11-12 10:33] VITALS: BP 176/92; PULSE 87; RESP 18; TEMP 37.3; O2SAT 97
--- NOTE | 2023-11-12 11:31 | ED_ITS ---
HPI - Fever 2 General: Chief Complaint: Fever Stated Complaint: headahce, body aches, cough Time Seen by Provider: 11/12/23 11:14 History of Present Illness: The patient presents to the ER with a chief complaint of severe headache, coughing, vomiting, and sore throat. The symptoms began yesterday morning, subsided temporarily, and then returned last night around 9 o'clock. The patient reports being unable to rest due to the severity of the symptoms and body aches. The patient has a history of hypertension and was recently started on Lisinopril. The patient's blood pressure at the time of the visit was 148/118. The patient denies taking any other medications, but reports taking Emergen-C earlier in the day. The patient has not received a flu shot this year and reports possible exposure to a coworker with cold or flu-like symptoms last week. The patient also has a history of kidney issues, with one kidney functioning at 85% and the other at 15%. The patient is a current smoker with a 44-year history, currently smoking half a pack per day, down from two to three packs per day previously. The patient is planning to undergo hypnosis to quit smoking. The patient also has a nebulizer at home but has not used it in about a year and needs a new mask for it. Associated symptoms: Deny chills, chest pain or dysuria Review of Systems 2 General: Reports: 10 or more systems reviewed and unremarkable except in HPI and below Const: Denies: fever(s) or chills Card: Denies: chest pain, palpitations or edema Resp: Denies: dyspnea : Denies: dysuria Skin/Breast: Denies: rash PFSH ED 2 PFSH: Medical History (Updated 11/12/23 @ 14:41 by Emiliano Varner DO) Dry skin dermatitis Smoker Age 7 to present, 1 to 2 packs/day and presently 1 pack/day CKD (chronic kidney disease) stage 2, GFR 60-89 ml/min Osteoarthritis involving multiple joints on both sides of body Hypertension COPD (chronic obstructive pulmonary disease) Kidney calculi [facility] [place] stent placement ~ 04/12/2023 Surgical History (Updated 11/01/23 @ 08:53 by Moisés Poe MD) H/O shoulder surgery right shoulder Family History (Updated 11/01/23 @ 08:13 by Theodora Collins LPN) Father Cancer Mother No problems noted. Social History (Updated 11/01/23 @ 08:14 by Theodora Collins LPN) Smoking and tobacco/nicotine status: current every day tobacco/nicotine user Quit status (tobacco/nicotine): not considering quitting Alcohol intake: former Substance/Drug Use: current Substance/Drug use frequency: daily Physical Exam 2 Const: COMMON NORMALS: no acute distress, patient oriented x3, healthy appearing, alert and well nourished HENMT: COMMON NORMALS: normocephalic HEAD & SCALP: normocephalic Eye: COMMON NORMALS: EOMs intact bilaterally Neck/C-Spine: COMMON NORMALS: full ROM and supple Resp: COMMON NORMALS: normal respiratory effort, No retractions and clear to auscultation bilaterally AUSCULTATION: clear to auscultation bilaterally Cardio: COMMON NORMALS: regular rate, regular rhythm, No gallops present (Cardio) and No murmurs present (Cardio) RATE: regular rate RHYTHM: r egular rhythm GI: COMMON NORMALS: Soft to palpation and non-tender PALPATION: Yes Soft to palpation Extremity: GENERAL: Yes normal exam except as noted Neuro: COMMON NORMALS: patient oriented x3 SENSORIUM/ORIENTATION: Yes alert Skin: COMMON NORMALS: no rashes or lesions noted GENERAL SKIN EXAM: no rashes or lesions noted Course 2 Vital Signs: Vital signs: Vital Signs Temperature 99.1 F 11/12/23 10:33 Pulse Rate 87 11/12/23 10:33 Respiratory Rate 18 11/12/23 10:33 Blood Pressure 176/92 11/12/23 10:33 Pulse Oximetry 97 11/12/23 10:33 Oxygen Delivery Me thod Room Air 11/12/23 10:33 MDM - Fever Medical Decision Making 53-year-old male presented to the emergency department for evaluation of fever, body aches, vomiting, and sore throat. Patient's history, physical exam, and evaluation in the emergency department is consistent with a viral illness. Patient did have hypertension. Encourage patient to follow-up with his primary care physician for further management of his hypertension. Discussed return precautions. Patient was discharged home in good condition. Lab Data 11/12/23 11:44 11/12/23 11:44 Laboratory Results WBC 7.15 10^3/uL (3.29-11.43) 11/12/23 11:44 RBC 4.66 10^6/uL (3.85-5.65) 11/12/23 11:44 Hgb 15.30 g/dL (11.27-16.99) 11/12/23 11:44 Hct 45.5 % (37-53) 11/12/23 11:44 MCV 97.6 fl (82-101) 11/12/23 11:44 MCH 32.8 pg (27-33) 11/12/23 11:44 MCHC 33.6 g/dL (30-55) 11/12/23 11:44 RDW 12.6 % (12.1-15.1) 11/12/23 11:44 Plt Count 233 10^3/cmm (157-399) 11/12/23 11:44 MPV 10.4 fL (7.4-10.4) 11/12/23 11:44 Neut % (Auto) 74.5 % 11/12/23 11:44 Lymph % (Auto) 8.7 % 11/12/23 11:44 [place] % (Auto) 13.7 % 11/12/23 11:44 Eos % (Auto) 1.4 % 11/12/23 11:44 Baso % (Auto) 1.3 % 11/12/23 11:44 Neut # (Auto) 5.33 10^3/uL (1.8-7.7) 11/12/23 11:44 Lymph # (Auto) 0.6 10^3/uL (0.8-4.8) L 11/12/23 11:44 [place] # (Auto) 1.0 10^3/uL (0.2-0.9) H 11/12/23 11:44 Eos # (Auto) 0.1 10^3/uL (0.0-0.8) 11/12/23 11:44 Baso # (Auto) 0.1 10^3/uL (0.0-0.1) 11/12/23 11:44 Nucleated RBC % (auto) 0 % 11/12/23 11:44 Nucleated RBCs # 0.0 /100WBC 11/12/23 11:44 Sodium 137 mmol/L (136-145) 11/12/23 11:44 Potassium 4.0 mmol/L (3.5-5.1) 11/12/23 11:44 Chloride 103 mmol/L (98-107) 11/12/23 11:44 Carbon Dioxide 25 mmol/L (22-29) 11/12/23 11:44 Anion Gap 13.0 (5-19) 11/12/23 11:44 BUN 11 mg/dL (6-20) 11/12/23 11:44 Creatinine 1.0 mg/dL (0.7-1.2) 11/12/23 11:44 GFR Calculation 77.9 mL/min (90-130) L 11/12/23 11:44 Glucose 75 mg/dL (65-115) 11/12/23 11:44 Calculated Osmolality 282 mOsm/kg (285-295) L 11/12/23 11:44 Calcium 8.9 mg/dL (8.5-10.5) 11/12/23 11:44 Monoscreen Negative (Negative) 11/12/23 11:44 Influenza Type A Ag negative (Negative) 11/12/23 10:45 Influenza Type B Ag negative (Negative) 11/12/23 10:45 SARS-CoV-2 Ag (Rapid) negative (Negative) 11/12/23 10:45 No radiology studies performed this visit Discharge Plan Discharge Patient Disposition: Home Clinical Impression: Viral infection Hypertension Qualifiers: Hypertension type: primary hypertension Qualified Code(s): I10 - Essential (primary) hypertension Condition: Stable Prescriptions: No Action lisinopril 5 mg tablet 5 mg PO DAILY Qty: 90 1RF triamcinolone acetonide 0.1 % cream 1 applic topical TID PRN (Reason: itching) Qty: 30 0RF ibuprofen 200 mg Tablet 800 mg PO Q6H PRN (Reason: Pain) Discharge Orders: Discharge ED (Routine); Ordered 11/12/23 Ordered By: Emiliano Law Referrals: Moisés Poe MD [Primary Care Provider] - Discharge Diet: Regular Discharge Activity: Resume usual activity Patient Instructions: Opioid Safety, Pain Management Coding Level of Care Code ED Computer Forensics Analyst for Jacquelyng Lucian
[2023-11-12 11:53] LABS: Basophils # 0.1 10^3/uL (0.0-0.1); Basophils % 1.3 %; Eosinophils # 0.1 10^3/uL (0.0-0.8); Eosinophils % 1.4 %; Hematocrit 45.5 % (37-53); Lymphocytes # 0.6 10^3/uL (0.8-4.8); Lymphocytes % 8.7 %; Mean Corpuscular HGB Conc 33.6 g/dL (30-55); Mean Corpuscular Hemoglobin 32.8 pg (27-33); Mean Corpuscular Volume 97.6 fl (82-101); Mean Platelet Volume 10.4 fL (7.4-10.4); Monocytes % 13.7 %; Neutrophils # 5.33 10^3/uL (1.8-7.7); Neutrophils % 74.5 %; Nucleated Red Blood Cells % 0 %; Platelet Count 233 10^3/cmm (157-399); Red Blood Count 4.66 10^6/uL (3.85-5.65); Red Cell Distribution Width 12.6 % (12.1-15.1); White Blood Count 7.15 10^3/uL (3.29-11.43)
[2023-11-12 12:05] LABS: Influenza A by IFA negative (Negative); Influenza B by IFA negative (Negative); SARS Covid-2 Antigen negative (Negative)
[2023-11-12 12:17] LABS: Blood Urea Nitrogen 11 mg/dL (6-20); Calcium 8.9 mg/dL (8.5-10.5); Carbon Dioxide 25 mmol/L (22-29); Chloride 103 mmol/L (98-107); Creatinine Clr Calc Pharmacy 81.4817; Glomerular Filtration Rate 77.9 mL/min (90-130); Glucose 75 mg/dL (65-115); Osmolality Calculated 282 mOsm/kg (285-295); Sodium 137 mmol/L (136-145)
[2023-11-12] MEDS: acetaminophen 500 mg Tablet 1000 MG PO (12:59)
[2023-11-12] MEDS: sodium chloride 0.9% 500 ML IV (13:00)
[2023-11-12 13:18] LABS: Monoscreen Negative (Negative)
== END 2023-11-12 14:56 | disposition home or self-care (01) ==
PROVIDERS: Emergency Provider General Practice; PCP Family Medicine Adult Medicine
DX: B34.9 Viral infection, unspecified (principal); Z11.52 Encounter for screening for COVID-19; Z72.0 Tobacco use; I12.9 Hypertensive chronic kidney disease with stage 1 through stage 4 chronic kidney disease, or unspecified chronic kidney disease; N18.2 Chronic kidney disease, stage 2 (mild); J44.9 Chronic obstructive pulmonary disease, unspecified
CPT/HCPCS: 80048; 85025; 86308; 87426; 87804; 96360; 99284; J7040

== ENCOUNTER 2023-11-20 14:55 | Emergency (ER) | payer MEDICAID, SELFPAY ==
[2023-11-20 15:02] VITALS: BP 115/73; PULSE 73; RESP 16; TEMP 36.6; O2SAT 96; BMI 26.4
[2023-11-20 15:48] LABS: Basophils % 0.4 %; Eosinophils # 0.1 10^3/uL (0.0-0.8); Hematocrit 44.8 % (37-53); Lymphocytes # 1.5 10^3/uL (0.8-4.8); Lymphocytes % 29.3 %; Mean Corpuscular HGB Conc 33.5 g/dL (30-55); Mean Corpuscular Hemoglobin 32.4 pg (27-33); Mean Corpuscular Volume 96.8 fl (82-101); Mean Platelet Volume 11.6 fL (7.4-10.4); Monocytes # 0.6 10^3/uL (0.2-0.9); Monocytes % 11.7 %; Neutrophils # 2.93 10^3/uL (1.8-7.7); Neutrophils % 57.2 %; Nucleated Red Blood Cells % 0 %; Platelet Count 153 10^3/cmm (157-399); Red Blood Count 4.63 10^6/uL (3.85-5.65); Red Cell Distribution Width 12.5 % (12.1-15.1); White Blood Count 5.12 10^3/uL (3.29-11.43)
[2023-11-20 16:12] LABS: Slide Review Slide Review Perform
[2023-11-20 16:14] LABS: Alanine Aminotransferase 32 U/L (0-41); Albumin Level 3.7 g/dL (3.5-5.2); Alkaline Phosphatase 104 U/L (40-130); Anion Gap 16.5 (5-19); Aspartate Amino Transferase 34 U/L (0-40); Blood Urea Nitrogen 15 mg/dL (6-20); Calcium 8.6 mg/dL (8.5-10.5); Carbon Dioxide 24 mmol/L (22-29); Chloride 102 mmol/L (98-107); Globulin 3.1 g/dL (1.3-4.6); Glomerular Filtration Rate 69.8 mL/min (90-130); Glucose 136 mg/dL (65-115); Osmolality Calculated 291 mOsm/kg (285-295); Potassium 3.5 mmol/L (3.5-5.1); Sodium 139 mmol/L (136-145); Total Bilirubin 0.3 mg/dL (0.15-1.2); Total Protein 6.8 g/dL (6.6-8.7)
[2023-11-20 17:25] VITALS: BP 128/86; PULSE 79; RESP 18; O2SAT 96
--- NOTE | 2023-11-20 17:31 | CTR_ITS ---
PROCEDURE INFORMATION: Exam: CT Abdomen And Pelvis With Contrast Exam date and time: 11/20/2023 4:44 PM Age: 53 years old Clinical indication: Abdominal pain; Localized; Left lower quadrant (llq); Prior surgery; Surgery date: 6+ months; Surgery type: Appy, renal stent/removal; Additional info: Left lower quadrant/groin pain TECHNIQUE: Imaging protocol: Computed tomography of the abdomen and pelvis with contrast. Radiation optimization: All CT scans at this facility use at least one of these dose optimization techniques: automated exposure control; mA and/or kV adjustment per patient size (includes targeted exams where dose is matched to clinical indication); or iterative reconstruction. Contrast material: OMNI 350; Contrast volume: 100 ml; Contrast route: INTRAVENOUS (IV); COMPARISON: CT kidney stone 52100 03/31/2023 1:04 PM RADIATION DOSE METRICS: Total DLP (mGy-cm): 395.15 FINDINGS: Lungs: Patchy areas of ground-glass opacities and increased interstitial markings in the peripheral aspects of the lower lobes and right middle lobe which is nonspecific but can be seen the setting of viral infection. Liver: Normal. No mass. Gallbladder and bile ducts: Normal. No calcified stones. No ductal dilation. Pancreas: Normal. No ductal dilation. Spleen: Normal. No splenomegaly. Adrenal glands: Normal. No mass. Kidneys and ureters: There is a nonobstructing 7 mm stone in the left kidney. There are multiple nonobstructing stones in the right kidney many of which are cortical measuring up to 3 mm. No hydronephrosis or hydroureter. There is extensive cortical irregularity and atrophy of the right kidney which may represent prior injury. There is a 15 mm complex cystic structure in the lateral cortex of the left kidney measuring up to 25 Hounsfield units which is indeterminate. Stomach and bowel: Unremarkable. No obstruction. No mucosal thickening. Appendix: The appendix is absent. Intraperitoneal space: Unremarkable. No free air. No significant fluid collection. Vasculature: Unremarkable. No abdominal aortic aneurysm. Lymph nodes: Unremarkable. No enlarged lymph nodes. Urinary bladder: Unremarkable as visualized. Reproductive: Unremarkable as visualized. Bones/joints: Unremarkable. Soft tissues: Small fat containing left inguinal hernia. CT/CT abdomen pelvis w con* [id number] IMPRESSION: 1. Patchy areas of ground-glass opacities and increased interstitial markings in the peripheral aspects of the lower lobes and right middle lobe which is nonspecific but can be seen the setting of viral infection. 2. There is a 15 mm complex cystic structure in the lateral cortex of the left kidney measuring up to 25 Hounsfield units which is indeterminate. A three-phase renal CT or renal MRI may be of benefit to more fully characterize these lesions and exclude solid lesions. 3. Small fat containing left inguinal hernia. COMMENTS: Consistent with the [place] [employer]'s Incidental Findings Committee white paper (J Am Tod Radiol 2018): Any incidental renal lesion less than 1 cm or classified as too small to characterize, or any incidental cystic renal lesion characterized as simple-appearing, is likely benign. No follow-up imaging is recommended for these lesions per consensus recommendations based on imaging criteria.
[2023-11-20 17:36] LABS: Urine Appearance Clear (CLEAR); Urine Color Yellow (Yellow); pH Urine 6 (5-7)
[2023-11-20 17:37] LABS: Add Urine Culture? No; Add Urine Microscopic? YES; Bacteria Urine TRACE /hpf; Bilirubin Urine Neg (Negative); Blood Urine 2+ (Negative); Glucose Urine UA Norm (Normal); Ketones Urine Negative (Negative); Leukocyte Esterase Urine Negative (Negative); Mucus Urine TRACE /hpf; Nitrate Urine Negative (Negative); Protein Urine 1+ (Negative); RBC Urine 0-4 /hpf (0-2); Urobilinogen Urine 1 mg/dL (Negative); WBC Urine RARE /hpf (0-5)
[2023-11-20] MEDS: iohexol 350 mg/mL 500 mL Btl (per mL) IV (17:45)
--- NOTE | 2023-11-20 18:23 | W.ED.ABDPA2 ---
HPI - Abdominal Pain General: Chief Complaint: Abdominal Pain Stated Complaint: groin pain Time Seen by Provider: 11/20/23 15:27 History of Present Illness: 53-year-old male presents emerged part with complaints of having pain in his left groin area. He states he has been coughing for the previous 1 week because of influenza and felt a sudden pop and swelling to his left groin. He denies testicular pain. He states the area is tender to palpation to the left lower quadrant of his abdomen. He denies nausea vomiting fevers chills or night sweats. He states he does have a history of kidney stones as well. He states his current discomfort is a 3 out of 10 at present he states it is a dull aching type pain. Review of Systems General: Reports: 10 or more systems reviewed and unremarkable except in HPI and below GI: Reports: abdominal pain (Left lower quadrant) [facility] ED PFSH: Medical History Dry skin dermatitis Smoker Age 7 to present, 1 to 2 packs/day and presently 1 pack/day CKD (chronic kidney disease) stage 2, GFR 60-89 ml/min Osteoarthritis involving multiple joints on both sides of body Hypertension COPD (chronic obstructive pulmonary disease) Kidney calculi [facility] in [place] stent placement ~ 04/12/2023 Surgical History H/O shoulder surgery right shoulder Family History Father Cancer Mother No problems noted. Social History Smoking and tobacco/nicotine status: current every day tobacco/nicotine user Quit status (tobacco/nicotine): not considering quitting Alcohol intake: former Substance/Drug Use: current Substance/Drug use frequency: daily Physical Exam Narrative: EXAM NARRATIVE: Constitutional: the patient appears well nourished and of normal development. Vital signs as documented. No acute distress at present. Alert and oriented-to person, place, time and situation. Head, eyes, ears, nose, mouth, throat: Normocephalic, atraumatic. Pupils-equal, round, reactive to light. No scleral icterus. Normal-appearing external ears. Normal appearing nasal turbinates, no drainage. No obvious oral lesions, posterior oropharynx without erythema or exudates. Neck: Supple, trachea is midline, no lymphadenopathy, no jugular venous distension, thyromegaly, or carotid bruits. Carotid upstrokes are brisk bilaterally. Lungs: clear to auscultation to all lung leon. Symmetrical rise and fall of chest, no obvious signs of increased work of breathing at present. Cardiac: Regular rate and rhythm, positive S1, S2. No murmurs, rubs or gallops that I can appreciate Abdomen: Soft, tenderness to palpation to the left mons pubis area. Positive left inguinal hernia reducible, normal active bowel sounds to all quadrants. No palpable masses, no organomegaly and abdominal bruits. Extremities: 2+ pulses in the upper extremities that are equal bilaterally, 2+ pulses in the lower extremities that are equal bilaterally. Non-edematous. Moves all extremities well, sensation to all extremities are noted. Skin: Warm, dry, intact. Course Vital Signs: Vital signs: Vital Signs Temperature 97.9 F 11/20/23 15:02 Pulse Rate 79 11/20/23 17:25 Respiratory Rate 18 11/20/23 17:25 Blood Pressure 128/86 11/20/23 17:25 Pulse Oximetry 96 11/20/23 17:25 Oxygen Delivery Me thod Room Air 11/20/23 17:25 MDM - Abdominal Pain Medical Decision Making Physical exam completed and documented I did obtain a CBC and CMP as well as a urinalysis which demonstrated hematuria. I did obtain a CT scan abdomen pelvis with IV contrast demonstrated small left inguinal hernia as well as bilateral renal calculi and a renal cyst. Medical Records I reviewed the patient's medical records. Lab Data I reviewed the patient's lab results. 11/20/23 15:45 11/20/23 15:45 Labs/Radiology: Radiology Impressions Abdomen/Pelvis CT 11/20/23 17:31 IMPRESSION: 1. Patchy areas of ground-glass opacities and increased interstitial markings in the peripheral aspects of the lower lobes and right middle lobe which is nonspecific but can be seen the setting of viral infection. 2. There is a 15 mm complex cystic structure in the lateral cortex of the left kidney measuring up to 25 Hounsfield units which is indeterminate. A three-phase renal CT or renal MRI may be of benefit to more fully characterize these lesions and exclude solid lesions. 3. Small fat containing left inguinal hernia. COMMENTS: Consistent with the [employer]'s Incidental Findings Committee white paper (J Am Tod Radiol 2018): Any incidental renal lesion less than 1 cm or classified as too small to characterize, or any incidental cystic renal lesion characterized as simple-appearing, is likely benign. No follow-up imaging is recommended for these lesions per consensus recommendations based on imaging criteria. Laboratory Results WBC 5.12 10^3/uL (3.29-11.43) 11/20/23 15:45 RBC 4.63 10^6/uL (3.85-5.65) 11/20/23 15:45 Hgb 15.00 g/dL (11.27-16.99) 11/20/23 15:45 Hct 44.8 % (37-53) 11/20/23 15:45 MCV 96.8 fl (82-101) 11/20/23 15:45 MCH 32.4 pg (27-33) 11/20/23 15:45 MCHC 33.5 g/dL (30-55) 11/20/23 15:45 RDW 12.5 % (12.1-15.1) 11/20/23 15:45 Plt Count 153 10^3/cmm (157-399) L 11/20/23 15:45 MPV 11.6 fL (7.4-10.4) H 11/20/23 15:45 Neut % (Auto) 57.2 % 11/20/23 15:45 Lymph % (Auto) 29.3 % 11/20/23 15:45 [place] % (Auto) 11.7 % 11/20/23 15:45 Eos % (Auto) 1.0 % 11/20/23 15:45 Baso % (Auto) 0.4 % 11/20/23 15:45 Neut # (Auto) 2.93 10^3/uL (1.8-7.7) 11/20/23 15:45 Lymph # (Auto) 1.5 10^3/uL (0.8-4.8) 11/20/23 15:45 [place] # (Auto) 0.6 10^3/uL (0.2-0.9) 11/20/23 15:45 Eos # (Auto) 0.1 10^3/uL (0.0-0.8) 11/20/23 15:45 Baso # (Auto) 0.0 10^3/uL (0.0-0.1) 11/20/23 15:45 Nucleated RBC % (auto) 0 % 11/20/23 15:45 Nucleated RBCs # 0.0 /100WBC 11/20/23 15:45 Sodium 139 mmol/L (136-145) 11/20/23 15:45 Potassium 3.5 mmol/L (3.5-5.1) 11/20/23 15:45 Chloride 102 mmol/L (98-107) 11/20/23 15:45 Carbon Dioxide 24 mmol/L (22-29) 11/20/23 15:45 Anion Gap 16.5 (5-19) 11/20/23 15:45 BUN 15 mg/dL (6-20) 11/20/23 15:45 Creatinine 1.1 mg/dL (0.7-1.2) 11/20/23 15:45 GFR Calculation 69.8 mL/min (90-130) L 11/20/23 15:45 Glucose 136 mg/dL (65-115) H 11/20/23 15:45 Calculated Osmolality 291 mOsm/kg (285-295) 11/20/23 15:45 Calcium 8.6 mg/dL (8.5-10.5) 11/20/23 15:45 Total Bilirubin 0.3 mg/dL (0.15-1.2) 11/20/23 15:45 AST 34 U/L (0-40) 11/20/23 15:45 ALT 32 U/L (0-41) 11/20/23 15:45 Alkaline Phosphatase 104 U/L (40-130) 11/20/23 15:45 Total Protein 6.8 g/dL (6.6-8.7) 11/20/23 15:45 Albumin 3.7 g/dL (3.5-5.2) 11/20/23 15:45 Globulin 3.1 g/dL (1.3-4.6) 11/20/23 15:45 Urine Color Yellow (Yellow) 11/20/23 17:23 Urine Appearance Clear (CLEAR) 11/20/23 17:23 Urine pH 6 (5-7) 11/20/23 17:23 Ur Specific [place] 1.020 (1.005-1.030) 11/20/23 17:23 Urine Protein 1+ (Negative) H 11/20/23 17:23 Urine Glucose (UA) Norm (Normal) 11/20/23 17:23 Urine Ketones Negative (Negative) 11/20/23 17:23 Urine Blood 2+ (Negative) H 11/20/23 17:23 Urine Nitrate Negative (Negative) 11/20/23 17:23 Urine Bilirubin Neg (Negative) 11/20/23 17:23 Urine Urobilinogen 1 mg/dL (Negative) H 11/20/23 17:23 Ur Leukocyte Esterase Negative (Negative) 11/20/23 17:23 Urine RBC 0-4 /hpf (0-2) H 11/20/23 17:23 Urine WBC Rare /hpf (0-5) 11/20/23 17:23 Ur Squamous Epith Cells None /hpf (0-5) 11/20/23 17:23 Amorphous Sediment Not Reportable 11/20/23 17:23 Urine Bacteria Trace /hpf (NONE) 11/20/23 17:23 Urine Mucus Trace /hpf 11/20/23 17:23 All radiology interpretation(s) finalized by discharge Discharge Plan Discharge Patient Disposition: Home Clinical Impression: Hernia, inguinal, left, Bilateral kidney stones Hematuria Qualifiers: Hematuria type: unspecified type Qualified Code(s): R31.9 - Hematuria, unspecified Condition: Stable Prescriptions: New hydrocodone-acetaminophen 5-325 mg tablet 1 tab PO Q8H PRN (Reason: pain) Qty: 14 0RF No Action lisinopril 5 mg tablet 5 mg PO DAILY Qty: 90 1RF triamcinolone acetonide 0.1 % cream 1 applic topical TID PRN (Reason: itching) Qty: 30 0RF ibuprofen 200 mg Tablet 800 mg PO Q6H PRN (Reason: Pain) Discharge Orders: Discharge ED (Routine); Ordered 11/20/23 Ordered By: Stevo Bailey Referrals: Que Figueroa DO [Physician] - Moisés Poe MD [Primary Care Provider] - Discharge Diet: Usual diet Discharge Activity: Resume usual activity Patient Instructions: Opioid Safety, Pain Management Activity Restrictions/Additional Instructions: Activity Restrictions/Additional Instructions: Thank you for choosing [facility] for your healthcare needs today. Please realize that you were seen in the Emergency Department and that we are providing you with an emergency medical screening exam and this may not be a complete and all inclusive of all the testing and or medical work-up that you may need to determine your ailment or severity of your illness. It is very important that you follow-up as instructed with your Primary care provider or Specialist for additional evaluation and to discuss your medical treatment plan. You may return to the Emergency Department should you have concerns or if your condition changes or worsens in any way. Call to make a Follow-up appointment: [facility] [address] [place] [address] [facility] [address] [place] [address] Dr.ive Talavera [place], [place] [address] Phone--[phone] Coding Level of Care Code ED Burr Machine Operator for Katt Epstein
[2023-11-20 18:39] VITALS: BP 110/71; PULSE 65; RESP 16; O2SAT 98
== END 2023-11-20 18:40 | disposition home or self-care (01) ==
PROVIDERS: Emergency Provider Internal Medicine; PCP Family Medicine Adult Medicine
DX: K40.90 Unilateral inguinal hernia, without obstruction or gangrene, not specified as recurrent (principal); N20.0 Calculus of kidney; R31.9 Hematuria, unspecified; Z87.442 Personal history of urinary calculi; Z72.0 Tobacco use; I12.9 Hypertensive chronic kidney disease with stage 1 through stage 4 chronic kidney disease, or unspecified chronic kidney disease; N18.2 Chronic kidney disease, stage 2 (mild); J44.9 Chronic obstructive pulmonary disease, unspecified
CPT/HCPCS: 74177; 80053; 81001; 85025; 99285; Q9967

== ENCOUNTER 2023-12-13 05:57 | Day surgery (SDC) | payer MEDICAID, SELFPAY ==
[2023-12-13] VITALS (17 sets, daily range): BP systolic 108–250; BP diastolic 70–151; PULSE 58–113; RESP 12–36; TEMP 36.4–36.7; O2SAT 15–96; BMI 26.8
[2023-12-13] MEDS: sodium chloride 0.9% 1,000 ML 30 ML IV (06:26)
--- NOTE | 2023-12-13 06:58 | ANES.PREANE2 ---
Pre-Anesthetic Assessment Height/Weight: Height 1.68 m Weight 75.296 kg Temp Pulse Resp BP Pulse Ox O2 Del Method 97.6 F 58 L 18 156/85 96 Room Air 12/13/23 06:10 12/13/23 06:10 12/13/23 06:10 12/13/23 06:10 12/13/23 06:10 12/13/23 06:11 Operation Date: 12/13/23 07:00 Proposed Procedures p Laparoscopic Inguinal Hernia Repair with mesh(Not Applicable) - Que Figueroa DO Familial anesthetic complications: None Was Beta Nikki taken within 24 hours: N/A Was Clonidine taken within 24 hours: N/A Last intake: Intake Last Liquid Date 12/12/23 Last Liquid Time 21:00 Last Solid Date 12/12/23 Last Solid Time 22:00 Social No alcohol and No tobacco quit smoking last week Exam alert, oriented x 3, clear to auscultation bilaterally and regular rate & rhythm Airway Mallampati: Class II Dentition: other (Very poor dentition) CV/HEM Hypertension Chronic Renal Insufficiency Anesthetic Plan ASA status: 2 Anesthesia: General Risk of > 500 ml blood loss (7ml/kg in children): No Medications/Allergies Home Medications Medication Instructions Recorded Confirmed Last Taken Type lisinopril 5 mg tablet 5 mg PO DAILY #90 tabs 11/01/23 12/12/23 12/12/23 Rx Allergies Allergy/AdvReac Type Severity Reaction Status Date / Time No Known Allergies Allergy Verified 12/12/23 10:50 Current Medications Generic Name Dose Route Start Last Admin Trade Name Freq PRN Reason Stop Dose Admin Sodium Chloride 1,000 mls @ 30 mls/hr 12/13/23 06:15 12/13/23 06:26 Sodium Chloride 0.9% IV 12/14/23 06:14 30 mls/hr .Q24H BRAULIO Administration PFS Anesthesia Medical History (Updated 12/02/23 @ 11:54 by Moisés Poe MD) Hearing loss Dry skin dermatitis Smoker Age 7 to present, 1 to 2 packs/day and presently 1 pack/day CKD (chronic kidney disease) stage 2, GFR 60-89 ml/min Osteoarthritis involving multiple joints on both sides of body Hypertension COPD (chronic obstructive pulmonary disease) Kidney calculi [facility] in [place] stent placement ~ 04/12/2023 Surgical History H/O shoulder surgery right shoulder Family History Father Cancer Mother No problems noted. Social History Smoking and tobacco/nicotine status: current every day tobacco/nicotine user Quit status (tobacco/nicotine): not considering quitting Alcohol intake: former Substance/Drug Use: current Substance/Drug use frequency: daily Data Anesthesia Cardiac Studies: No Data to Display
--- NOTE | 2023-12-13 07:04 | W.PM.OPSUD ---
Surgery/Procedure H&P Update DATE OF PROCEDURE: December 13, 2023 DATE H&P PERFORMED: 11/24/23 H&P UPDATE INFORMATION: I have reviewed H&P completed within last 30 days, I have examined patient prior to procedure and No changes to prior documentation PLANNED PROCEDURE: Operation Date: 12/13/23 07:00 Proposed Procedures p Laparoscopic Inguinal Hernia Repair with mesh(Not Applicable) - Que Figueroa DO
[2023-12-13] MEDS: ceFAZolin 2,000 MG in sodium chloride 0.9% (plus) 50 ML 100 MG IV (07:05)
[2023-12-13] MEDS: lidocaine-epi 2% PF 1:200,000 20 mL SDV XX (07:41)
--- NOTE | 2023-12-13 07:49 | PM.OP ---
Operative Report Date of procedure: December 13, 2023 Pre-op diagnosis: Left inguinal hernia Post-op diagnosis: Left pantaloon inguinal hernia Procedure done: Laparoscopic repair of left inguinal hernia with mesh Implants: Left extra-large 3D max Bard mesh Specimens removed/disposition: None Surgeon: Que Figueroa DO Anesthesia: General and Local Estimated blood loss (mL): 5 Complications: None apparent Brief History: This very pleasant 53-year-old gentleman who presented my office with a left inguinal hernia. He desired repair. Laparoscopic left inguinal hernia repair with mesh was indicated. The risks and benefits were explained and documented Procedure: Patient was wheeled into the operative room and placed on the OR table in a supine position. Abdomen was inspected prepped and draped in usual sterile fashion. Time-out was performed and all present were in agreement. A 15 blade scalpel was used to make 1.2 centimeter incision infraumbilically. Combination of sharp and blunt dissection was performed down to the anterior rectus sheath which was opened sharply. The dissecting balloon was then inserted into the space of Retzius and blown up. We put the camera into the port and identified that we were in the correct space. I then placed 2 5 millimeter trocars suprapubically in the midline. I then used endokitners to bluntly dissect in the space of Retzius out left laterally. A pantaloon left inguinal hernia was identified. Blunt dissection was performed to dissect down the hernia sac until the vas deferens dove medially. An extra-large left 3D max Bard inguinal mesh was then placed into the space of Retzius. The mesh was unrolled and tacked once medially at the pubic bone. The mesh laid out nicely over the spermatic cord. Photos were taken of the mesh laid out and the hernia sac laid underneath the mesh. I watched the hernia sac remained in place as insufflation was removed. Incisions were closed with 4-0 Monocryl in a subcuticular interrupted fashion. Skin glue was applied. Patient tolerated the procedure well.
[2023-12-13] MEDS: HYDROmorphone 1 mg/mL INJ 1 mL 0.5 MG IVP (08:18)
[2023-12-13] MEDS: HYDROmorphone 1 mg/mL INJ 1 mL (08:28)
[2023-12-13] MEDS: hyDRALAzine 20 mg/mL INJ 1 mL (08:39)
--- NOTE | 2023-12-13 08:41 | PC.NURSE ---
0801 - to Pacu with TRUDY Nugent and LORNA Dawson at side - BP elevated - anesthesia aware and medications given x2 - simple mask at [address]
--- NOTE | 2023-12-13 08:42 | PC.NURSE ---
0839 - Dr Hough notified of BP continuing to be elevated after Dilaudid 0.5mg given x2 per LORNA Dawson order - new orders rec'd
[2023-12-13] MEDS: hyDRALAzine 20 mg/mL INJ 1 mL 5 MG IVP (08:46)
--- NOTE | 2023-12-13 09:30 | ANE.PACU2 ---
Inpatient post-anesthesia follow up: Airway intact: Yes Vital signs: Temperature 97.6 F Pulse Rate 64 Respiratory Rate 15 Blood Pressure 108/70 Pulse Oximetry 93 Oxygen Delivery Me thod Room Air Oxygen Flow Rate 3 Fraction of Inspir ed Oxygen Hydration adequate: Yes Nausea and vomiting: No Pain level: 1 Mental status: Baseline
== END 2023-12-13 09:32 | disposition home or self-care (01) ==
PROVIDERS: PCP Family Medicine Adult Medicine; Visit Provider Surgery
PROC: (CPT 49650; principal; 2023-12-13 07:00)
DX: K40.90 Unilateral inguinal hernia, without obstruction or gangrene, not specified as recurrent (principal); F17.200 Nicotine dependence, unspecified, uncomplicated; I12.9 Hypertensive chronic kidney disease with stage 1 through stage 4 chronic kidney disease, or unspecified chronic kidney disease; N18.9 Chronic kidney disease, unspecified
CPT/HCPCS: 49650; J0360; J0690; J1100; J1170; J2405; J2704; J3010; J3490; J7030

== ENCOUNTER 2024-01-04 09:20 | Day surgery (SDC) | payer MEDICAID, SELFPAY ==
[2024-01-04 09:34] VITALS: BP 124/85; PULSE 58; RESP 18; TEMP 36.6; O2SAT 97
--- NOTE | 2024-01-04 09:38 | P.ANESASSM_ITS ---
Pre-Anesthetic Assessment Height/Weight: Height 1.68 m Weight 74.843 kg Temp Pulse Resp BP Pulse Ox O2 Del Method 97.9 F 58 L 18 124/85 97 Room Air 01/04/24 09:34 01/04/24 09:34 01/04/24 09:34 01/04/24 09:34 01/04/24 09:34 01/04/24 09:34 Preop Diagnosis: Screening Operation Date: 01/04/24 10:15 Proposed Procedures p Colonoscopy(Not Applicable) - Que Figueroa DO Familial anesthetic complications: None Was Beta Nikki taken within 24 hours: N/A Was Clonidine taken within 24 hours: N/A Last intake: Intake Last Liquid Date 01/03/24 Last Liquid Time 22:00 Last Solid Date 01/02/24 Last Solid Time 20:00 Social Tobacco (0.25, marijuana use) and No alcohol Exam alert, oriented x 3 and regular rate & rhythm BBS diminished Airway Submandibular: within normal limits Cervical ROM: within normal limits Mallampati: Class II Comments: Comments: Very poor dentition, numerous missing History/ROS No significant history except as noted and No significant complaints Pulmonary Chronic Obstructive Pulmonary Disease and Exertional Dyspnea CV/HEM Coronary Artery Disease and Hypertension Chronic Renal Insufficiency (CKD stage 2) Hepatic None reported GI None reported Metabolic None reported Musc/skel Lower Back Pain and Osteoarthritis/DJD Neuropsych Headache (Chronic migraines d/t high BP) Anesthetic Plan ASA status: 3 Anesthesia: Anesthesia Evaluation, General and MAC Risk of > 500 ml blood loss (7ml/kg in children): No Medications/Allergies Home Medications Medication Instructions Recorded Confirmed Last Taken Type lisinopril 5 mg tablet 5 mg PO DAILY #90 tabs 11/01/23 01/02/24 01/02/24 Rx Allergies Allergy/AdvReac Type Severity Reaction Status Date / Time No Known Allergies Allergy Verified 12/12/23 10:50 [facility] Anesthesia Medical History (Updated 01/02/24 @ 14:54 by Carito Gallo) Hearing loss Dry skin dermatitis Smoker Age 7 to present, 1 to 2 packs/day and presently 1 pack/day CKD (chronic kidney disease) stage 2, GFR 60-89 ml/min Osteoarthritis involving multiple joints on both sides of body Hypertension COPD (chronic obstructive pulmonary disease) Kidney calculi [facility] in [place] stent placement ~ 04/12/2023 Surgical History (Updated 01/02/24 @ 14:54 by Carito Gallo) H/O shoulder surgery right shoulder Family History Father Cancer Mother No problems noted. Social History Smoking and tobacco/nicotine status: current every day tobacco/nicotine user Quit status (tobacco/nicotine): not considering quitting Alcohol intake: former Substance/Drug Use: current Substance/Drug use frequency: daily Data Anesthesia Cardiac Studies: No Data to Display
[2024-01-04] MEDS: sodium chloride 0.9% 1,000 ML 30 ML IV (09:52)
--- NOTE | 2024-01-04 10:44 | PM.HP ---
Providers/Chief Complaint Primary Care Provider: Moisés Poe MD Chief Complaint: Z12.11 History of Present Illness Galindo You is a 53 year old male Review of Systems General: Reports: 10 or more systems reviewed and unremarkable except in HPI and below Medications/Allergies Home Medications Medication Instructions Recorded Confirmed Last Taken Type lisinopril 5 mg tablet 5 mg PO DAILY #90 tabs 11/01/23 01/02/24 01/02/24 Rx Allergies Allergy/AdvReac Type Severity Reaction Status Date / Time No Known Allergies Allergy Verified 12/12/23 10:50 PFSH Acute PFSH: Medical History (Updated 01/02/24 @ 14:54 by Carito Gallo) Hearing loss Dry skin dermatitis Smoker Age 7 to present, 1 to 2 packs/day and presently 1 pack/day CKD (chronic kidney disease) stage 2, GFR 60-89 ml/min Osteoarthritis involving multiple joints on both sides of body Hypertension COPD (chronic obstructive pulmonary disease) Kidney calculi [facility] in [place] stent placement ~ 04/12/2023 Surgical History (Updated 01/02/24 @ 14:54 by Carito Gallo) H/O shoulder surgery right shoulder Family History Father Cancer Mother No problems noted. Social History Smoking and tobacco/nicotine status: current every day tobacco/nicotine user Quit status (tobacco/nicotine): not considering quitting Alcohol intake: former Substance/Drug Use: current Substance/Drug use frequency: daily Vitals/I&O/Wt Last Vital Signs Temp 97.9 F 01/04/24 09:34 Pulse 58 L 01/04/24 09:34 Resp 18 01/04/24 09:34 BP 124/85 01/04/24 09:34 Pulse Ox 97 01/04/24 09:34 O2 Del Method Room Air 01/04/24 09:34 Weight last 48 hrs Weight 165 lb A&P Assessment and plan (1) Colon cancer screening: Plan Colonoscopy Attestations Medical Necessity Statement*: Home Coding Level of Care Code Acute Code for Chg Fwd Diagnoses Colon cancer screening Z12.11
[2024-01-04 11:08] VITALS: BP 111/79; PULSE 78; RESP 20; TEMP 36.5; O2SAT 95
[2024-01-04 11:10] VITALS: BP 115/80; PULSE 71; RESP 20; O2SAT 97
[2024-01-04 11:20] VITALS: BP 114/78; PULSE 69; RESP 20; O2SAT 98
[2024-01-04 11:30] VITALS: BP 119/95; PULSE 71; RESP 20; O2SAT 99
--- NOTE | 2024-01-04 11:41 | PM.MISC ---
Miscellaneous Note Note: Patient actually did have a nodule on the right lobe of his prostate during digital rectal exam for the colonoscopy. I am referring him to a urologist.
--- NOTE | 2024-01-04 11:50 | ANE.PACU2 ---
Inpatient post-anesthesia follow up: Airway intact: Yes Vital signs: Temperature 97.7 F Pulse Rate 71 Respiratory Rate 20 Blood Pressure 119/95 Pulse Oximetry 99 Oxygen Delivery Me thod Room Air Oxygen Flow Rate 4 Fraction of Inspir ed Oxygen Hydration adequate: Yes Nausea and vomiting: No Pain level: 1 Mental status: Baseline
== END 2024-01-04 11:54 | disposition home or self-care (01) ==
PROVIDERS: PCP Family Medicine Adult Medicine; Visit Provider Surgery
PROC: 0DJD8ZZ Inspection of Lower Intestinal Tract, Via Natural or Artificial Opening Endoscopic (ICD-10-PCS; CPT 45378; principal; 2024-01-04 10:15)
DX: Z12.11 Encounter for screening for malignant neoplasm of colon (principal); K57.30 Diverticulosis of large intestine without perforation or abscess without bleeding; F17.200 Nicotine dependence, unspecified, uncomplicated; I12.9 Hypertensive chronic kidney disease with stage 1 through stage 4 chronic kidney disease, or unspecified chronic kidney disease; N18.2 Chronic kidney disease, stage 2 (mild); J44.9 Chronic obstructive pulmonary disease, unspecified; N40.2 Nodular prostate without lower urinary tract symptoms
CPT/HCPCS: 45378; G0121; J2704; J7030

== ENCOUNTER → 2024-08-13 09:06 | Outpatient (BNVA) | payer MEDICAID, SELFPAY | PROVIDERS: PCP Family Medicine Adult Medicine; Visit Provider Emergency Medicine | DX: M25.562 Pain in left knee (principal); R93.7 Abnormal findings on diagnostic imaging of other parts of musculoskeletal system | CPT/HCPCS: 73562 ==

== ENCOUNTER 2025-01-06 16:13 | Emergency (ER) | payer SELFPAY ==
[2025-01-06 16:27] VITALS: BP 146/103; PULSE 92; RESP 18; TEMP 36.7; O2SAT 98; BMI 20.9
--- NOTE | 2025-01-06 17:16 | CTR_ITS ---
PROCEDURE INFORMATION: Exam: CT Lumbar Spine Without Contrast Exam date and time: 01/06/2025 5:41 PM Age: 54 years old Clinical indication: Injury or trauma; Fall; Blunt trauma (contusions or hematomas); C/O severe low back pain after landing wrong on a trampoline attempting a backflip. ; Additional info: Back injury/severe pain; Paresthesias TECHNIQUE: Imaging protocol: Computed tomography of the lumbar spine without contrast. Radiation optimization: All CT scans at this facility use at least one of these dose optimization techniques: automated exposure control; mA and/or kV adjustment per patient size (includes targeted exams where dose is matched to clinical indication); or iterative reconstruction. COMPARISON: CT abdomen pelvis w con* [id number] 11/20/2023 4:44 PM RADIATION DOSE METRICS: Total DLP (mGy-cm): 433.4 FINDINGS: Bones/joints: No acute fracture. Normal alignment. No significant disc bulge or herniation. No severe spinal canal stenosis. Suggestion of at least mild right neural foraminal stenosis at L3-L4 inferiorly. Lungs: Suggestion of emphysema at the lung bases. Kidneys and ureters: The right kidney is small and atrophic with mild hydronephrosis and caliectasis particularly in the lower pole. There are bilateral renal calculi, the largest measuring 8 mm in the left kidney lower pole. Soft tissues: Unremarkable. CT/CT lumbar spine wo con* [id number] IMPRESSION: 1. No acute osseous abnormality. 2. Atrophic appearing right kidney. Bilateral renal stones.
--- NOTE | 2025-01-06 17:17 | ED_ITS ---
HPI - Back Pain/Injury General: Chief Complaint: Back Pain/Injury Stated Complaint: extreme back pain Time Seen by Provider: 01/06/25 16:48 Source: patient Mode of arrival: wheelchair Limitations: no limitations History of Present Illness: Patient is a 54-year-old male presents to ED today with a complaint of lower back pain. Patient states he was doing a flip on a trampoline earlier when his legs flipped up over his head and he immediately felt a pop to his lower back. He states he has had significant pain since then. He has intermittent paresthesias only involving my toes . He states he is not able to walk secondary to pain. He has no headache or neck pain. MD elicited complaint: back pain Pertinent past history: recent trauma Onset (ago): hour(s) Timing: constant Severity: moderate Similar Symptoms Previously: No Location: lumbar spine Radiation: left leg below the knee and right leg below the knee Exacerbating factors: movement and walking Relieving factors: none Context: other (jumping on trampoline) Associated symptoms: Reports difficulty walking (secondary to pain) and tingling/numbness/burning; Deny abdominal pain or fever(s) Work related injury: No Related Data Previous Rx's ?Medication ?Instructions ?Recorded lisinopril 5 mg tablet 5 mg PO DAILY #90 tabs 02/09 triamcinolone acetonide 0.1 % 1 applic topical BID #30 grams 06/13/24 topical cream tramadol 50 mg tablet 50 mg PO Q6H PRN pain #20 ta bs 08/13/24 ibuprofen 800 mg tablet 800 mg PO Q8H PRN pain #20 t abs 01/06/25 methocarbamol 500 mg tablet 1,000 mg (2 x 500 mg) PO Q 8H #30 01/06/25 tabs prednisone 10 mg tablet 10 mg PO DAILY 7 days #27 ta bs 01/06/25 Allergies Allergy/AdvReac Type Severity Reaction Status Date / Time No Known Allergies Allergy Verified 01/06/25 16:32 Review of Systems Const: Denies: fever(s) Card: Denies: chest pain Resp: Denies: dyspnea GI: Denies: abdominal pain Musc: Reports: back pain; Denies: neck pain, extremity pain, extremity swelling, joint pain, joint swelling, joint redness, joint warmth, joint stiffness or muscle cramps Neuro: Reports: sensory changes and difficulty walking (secondary to pain); Denies: headache(s) PFSH ED PFSH: Medical History Carpal tunnel syndrome of right wrist History of kidney stones Diverticulosis large intestine w/o perforation or abscess w/bleeding colonoscopy Dr. Figueroa, 01/04/24 Hearing loss Dry skin dermatitis Smoker Age 7 to present, 1 to 2 packs/day and presently 1 pack/day CKD (chronic kidney disease) stage 2, GFR 60-89 ml/min Osteoarthritis involving multiple joints on both sides of body Hypertension COPD (chronic obstructive pulmonary disease) Kidney calculi [facility] in [place] stent placement ~ 04/12/2023 Surgical History S/P hernia repair Dr. Figueroa 12/13/2023 History of appendectomy H/O shoulder surgery right shoulder Family History Father Cancer Mother No problems noted. Social History Smoking and tobacco/nicotine status: unknown if used tobacco/nicotine Quit status (tobacco/nicotine): not considering quitting Alcohol intake: former Substance/Drug Use: current Substance/Drug use frequency: daily Physical Exam Const: COMMON NORMALS: average body habitus, patient oriented x3, no limitations, healthy appearing, alert and well nourished GENERAL APPEARANCE: cooperative and in distress (appears uncomfortable secondary to pain) Neck/C-Spine: COMMON NORMALS: full ROM CERVICAL SPINE: Yes cervical ROM normal, No pain with cervical ROM, No Cervical spine tenderness, No step off deformity and No Paracervical muscle tenderness Resp: COMMON NORMALS: normal respiratory effort and clear to auscultation bilaterally AUSCULTATION: clear to auscultation bilaterally Cardio: COMMON NORMALS: regular rate and regular rhythm RATE: regular rate RHYTHM: regular rhythm GI: COMMON NORMALS: Normal to inspection, nondistended, normoactive bowel sounds present, Soft to palpation, non-tender, No hepatosplenomegaly present and no masses PALPATION: Yes Soft to palpation and Yes No hepatosplenomegaly present : COMMON NORMALS: Yes no CVA tenderness BLADDER/KIDNEY EXAM: Yes no CVA tenderness Back/Pelvis: COMMON NORMALS: no CVA tenderness THORACIC SPINE/UPPER BACK: No thoracic spinal tenderness and No paraspinal muscle tenderness LUMBAR SPINE/LOWER BACK: Yes ROM limited, Yes lumbar spinal tenderness, Yes straight leg raise positive right and Yes straight leg raise positive left PELVIS: Yes buttocks normal and No sciatic notch tenderness SACROILIAC JOINTS: Yes SI joints normal SACRUM: no tenderness COCCYX: no tenderness OTHER: Patient re-examinated after IV medications-he can now easily raise legs off table; sensation is normal Extremity: COMMON NORMALS: capillary refill normal, no clubbing, cyanosis or edema, no calf tenderness and no pedal edema GENERAL: Yes normal exam except as noted Neuro: COMMON NORMALS: patient oriented x3, moves all extremities, no focal motor deficits and no sensory deficits noted SENSORIUM/ORIENTATION: Yes alert GAIT: Yes Unable to assess gait and Yes Other gait observations present (after IV meds he was able to ambulate here in ED w/o assistance) Course Vital Signs: Vital signs: Vital Signs Temperature 98.1 F 01/06/25 16:27 Pulse Rate 88 01/06/25 19:07 Respiratory Rate 18 01/06/25 18:15 Blood Pressure 146/103 01/06/25 16:27 Pulse Oximetry 100 01/06/25 19:07 Oxygen Delivery Me thod Room Air 01/06/25 19:07 MDM - Back Pain/Injury Medical Decision Making CT scan showing no acute findings. Patient was given IV medications here and does feel quite a bit better. He was ambulatory here in the emergency department without difficulty or assistance. No acute neurologic deficits on exam. Patient was given instructions for close observation at home and return precautions. Otherwise he can follow-up with primary care later this week. Differential Diagnosis Likely lumbar radiculopathy and strain of lumbar region Labs Radiology Impressions Lumbar Spine CT 01/06/25 17:16 IMPRESSION: 1. No acute osseous abnormality. 2. Atrophic appearing right kidney. Bilateral renal stones. All radiology interpretation(s) finalized by discharge Discharge Plan Discharge Patient Disposition: Home Clinical Impression: Lumbar spine strain Qualifiers: Encounter type: initial encounter Qualified Code(s): S39.012A - Strain of muscle, fascia and tendon of lower back, initial encounter Condition: Stable Prescriptions: New methocarbamol 500 mg tablet 1,000 mg PO Q8H Qty: 30 0RF prednisone 10 mg tablet 10 mg PO DAILY 7 Days Qty: 27 0RF Rx Instructions: 6 tabs on days 1-2, 5 tabs on days 3, 4 tabs on day 4, 3 tabs on day 5, 2 tabs on day 6, 1 tab on day 7 Continued ibuprofen 800 mg tablet 800 mg PO Q8H PRN (Reason: pain) Qty: 20 0RF No Action triamcinolone acetonide 0.1 % cream 1 applic topical BID Qty: 30 0RF tramadol 50 mg tablet 50 mg PO Q6H PRN (Reason: pain) Qty: 20 0RF lisinopril 5 mg tablet 5 mg PO DAILY Qty: 90 1RF Discharge Orders: Discharge ED (Routine); Ordered 01/06/25 Ordered By: Julissa Verma Referrals: Moisés Poe MD [Primary Care Provider] - Activity Restrictions/Additional Instructions: As we discussed, you need to return the emergency department for onset of weakness to your legs, falling, numbness to your groin, urinary or fecal incontinence/retention, loss of sensation to your legs, or any other concerns you may have. You may follow-up with primary care later this week for re- evaluation. Print Language: Norwegian Coding Level of Care Code ED Manager Of Production for Katt Epstein
[2025-01-06] MEDS: ondansetron 2 mg/ML SDV 2 mL 4 MG IVP (18:09)
[2025-01-06] MEDS: ketorolac 60 mg/2 mL INJ 30 MG IVP (18:11)
[2025-01-06] MEDS: dexamethasone 10 mg/mL INJ IVP (18:12)
[2025-01-06 18:15] VITALS: RESP 18; O2SAT 100
[2025-01-06] MEDS: morphine 4 mg/mL SDV 1 mL IVP (18:15)
[2025-01-06 19:07] VITALS: PULSE 88; O2SAT 100
--- NOTE | 2025-01-06 19:16 | PC.NURSE ---
pt ambulated into hallway, down to nurses station, and then back to room, pt states it's tolerable, states at times with turns pt feels a pinch but pt was able to ambulate.
[2025-01-06 20:02] VITALS: PULSE 79; O2SAT 97
== END 2025-01-06 20:03 | disposition home or self-care (01) ==
PROVIDERS: Emergency Provider Physician Assistant; PCP Family Medicine Adult Medicine
DX: S39.012A Strain of muscle, fascia and tendon of lower back, initial encounter (principal); J44.9 Chronic obstructive pulmonary disease, unspecified; I12.9 Hypertensive chronic kidney disease with stage 1 through stage 4 chronic kidney disease, or unspecified chronic kidney disease; N18.2 Chronic kidney disease, stage 2 (mild); X58.XXXA Exposure to other specified factors, initial encounter
CPT/HCPCS: 72131; 96374; 96375; 99285; J1100; J1885; J2270; J2405

== ENCOUNTER → 2025-08-20 13:03 | Outpatient (BNVA) | payer BC, SELFPAY | PROVIDERS: PCP Family Medicine; Visit Provider Family Medicine | DX: Z12.5 Encounter for screening for malignant neoplasm of prostate (principal); I10 Essential (primary) hypertension; R35.89 Other polyuria | CPT/HCPCS: 80053; 80061; 83036; 85025; G0103 ==